=== PATIENT | male | born 1960 | race African-American/Black ===

== ENCOUNTER 2019-02-04 11:38 | Inpatient (IN) | payer OTHER ==
[~2019-02-04] VITALS: Ht 182.9 cm; Wt 72.1 kg
[~2019-02-04 11:38] MED LIST: AMLO5TAB10 PO; ASPI-482 PO; BUTA1TAB23 PO; CA C1TAB67 PO; CETI10TA16 PO; CLON1PAT3 TD; CYCL10TA2 PO; DALF10TA PO; DIVA-53 PO; DOCU100C28 PO; FING0.5C3 PO; FLEC100T PO; FLUT9.9S NS; FURO40TA4 PO; GABA300C18 PO; IBUP-1007 PO; LEVE500T56 PO; LISI-130 PO; METO50TA6 PO; MORP15TA80 PO; OMEP20TA8 PO; OXYC5CAP PO; POLY17PO29 PO; RISP0.2519 PO; TAMS0.4C2 PO
[2019-02-04] MEDS ORDERED: IV NORMAL SALINE 1000ML BAG 1,000 ML IV SCH (12:07)
--- NOTE | 2019-02-04 12:12 | PHYS DOC ---
Past Medical History Past Medical History: Other Additional Past Medical Histor: ms Past Surgical History: Other Additional Past Surgical Histo: rt hip replacement x 2 Alcohol Use: None Drug Use: None Adult General Chief Complaint Chief Complaint: ALTERED MENTAL STATUS HPI HPI Patient is a 58-year-old male who presents to the emergency department for evaluation of fever and altered mental status of his fci. He was recently discharged from this facility after being admitted with metabolic encephalopathy. His baseline mental status is not known to me. He does not voice any particular complaints but is extremely limited historian. EMS did not have much information about the patient's baseline from this. There are no alleviating, or exacerbating factors to his sx. Review of Systems Review of Systems Unable to obtain review of systems secondary to patient's underlying mental status. Current Medications Current Medications Current Medications Medications (Trade) Dose Ordered Sig/Joel Start Time Stop Time Status Last Admin Dose Admin Acetaminophen (Tylenol) 1,000 mg 1X ONCE 02/04/19 12:15 02/04/19 12:16 DC 02/04/19 13:03 1,000 MG Ceftriaxone Sodium (Rocephin) 1 gm 1X ONCE 02/04/19 12:15 02/04/19 12:16 DC 02/04/19 12:58 1 GM Piperacillin Sod/ Tazobactam Sod (Zosyn Per Pharmacy) 1 each PRN DAILY PRN 02/04/19 13:15 Piperacillin Sod/ Tazobactam Sod 3.375 gm/Sodium Chloride 50 ml @ 100 mls/hr Q6HRS 02/04/19 13:30 Sodium Chloride 1,000 ml @ 1,000 mls/hr Q1H 02/04/19 12:07 02/04/19 13:06 DC 02/04/19 12:56 1,000 MLS/HR Vancomycin HCl (Vanco Per Pharmacy) 1 each PRN DAILY PRN 02/04/19 13:15 Vancomycin HCl 2 gm/Sodium Chloride 500 ml @ 250 mls/hr 1X ONCE 02/04/19 14:00 02/04/19 15:59 Allergies Allergies Allergies Coded Allergies Type Severity Reaction Last Updated Verified No Known Drug Allergies 09/03/15 No Physical Exam Physical Exam PHYSICAL EXAM: CONSTITUTIONAL: Well developed, well nourished HEAD: normocephalic, atraumatic EENT: PERRL, EOMI. Conjunctivae normal color, sclerae non-icteric; moist mucous membranes. NECK: Supple, non-tender; no meningismus. LUNGS: Lungs CTA, breathing even and unlabored. Normal air movement. HEART: Regular rate and rhythm, no murmur CHEST: No deformity; non-tender ABDOMEN: The abdomen is soft, and non-tender, no masses or bruits. EXTREM: Normal ROM; no deformity, no calf tenderness. Normal pulses palpable in all extremities. There is trace bilateral pedal edema. SKIN: No rashes. NEUROLOGICAL: Patient is lethargic. There is no definite focal deficit. Current Patient Data Vital Signs Vital Signs Date Time Temp Pulse Resp B/P (MAP) Pulse Ox O2 Delivery O2 Flow Rate FiO2 02/04/19 12:09 101.7 84 18 102/73 (83) 89 Room Air 101.7 Lab Values Laboratory Tests Test 02/04/19 12:05 02/04/19 12:30 White Blood Count 7.5 x10^3/uL (4.0-11.0) Red Blood Count 3.63 x10^6/uL (4.30-5.70) L Hemoglobin 11.4 g/dL (13.0-17.5) L Hematocrit 34.7 % (39.0-53.0) L Mean Corpuscular Volume 95 fL (79-100) Mean Corpuscular Hemoglobin 31 pg (25-35) Mean Corpuscular Hemoglobin Concent 33 g/dL (31-37) Red Cell Distribution Width 15.5 % (11.5-14.5) H Platelet Count 264 x10^3/uL (140-400) Neutrophils (%) (Auto) 84 % (31-73) H Lymphocytes (%) (Auto) 6 % (24-48) L Monocytes (%) (Auto) 10 % (0-9) H Eosinophils (%) (Auto) 0 % (0-3) Basophils (%) (Auto) 0 % (0-3) Neutrophils # (Auto) 6.3 x10^3uL (1.8-7.7) Lymphocytes # (Auto) 0.4 x10^3/uL (1.0-4.8) L Monocytes # (Auto) 0.7 x10^3/uL (0.0-1.1) Eosinophils # (Auto) 0.0 x10^3/uL (0.0-0.7) Basophils # (Auto) 0.0 x10^3/uL (0.0-0.2) Sodium Level 143 mmol/L (136-145) Potassium Level 4.0 mmol/L (3.5-5.1) Chloride Level 106 mmol/L (98-107) Carbon Dioxide Level 31 mmol/L (21-32) Anion Gap 6 (6-14) Blood Urea Nitrogen 19 mg/dL (8-26) Creatinine 1.4 mg/dL (0.7-1.3) H Estimated GFR (Cockcroft-Gault) 62.8 BUN/Creatinine Ratio 14 (6-20) Glucose Level 122 mg/dL (70-99) H Lactic Acid Level 1.3 mmol/L (0.4-2.0) Calcium Level 9.0 mg/dL (8.5-10.1) Total Bilirubin 0.3 mg/dL (0.2-1.0) Aspartate Amino Transferase (AST) 26 U/L (15-37) Alanine Aminotransferase (ALT) 26 U/L (16-63) Alkaline Phosphatase 118 U/L (46-116) H Ammonia 23 mcmol/L (11-34) Troponin I Quantitative < 0.017 ng/mL (0.000-0.055) BU-Asx-D-Type Natriuretic Peptide 517 pg/mL (0-124) H Total Protein 7.1 g/dL (6.4-8.2) Albumin 2.5 g/dL (3.4-5.0) L Albumin/Globulin Ratio 0.5 (1.0-1.7) L Valproic Acid Level 32 mcg/mL (50-100) L Valproic Acid Last Dose Date Unknown Valproic Acid Last Dose Time Unknown Phenobarbital Level 1.0 mcg/mL (15.0-40.0) L Phenobarbital Last Dose Date Unknown Phenobarbital Last Dose Time Unknown Urine Collection Type Unknown Urine Color Yellow Urine Clarity Clear Urine pH 8.0 Urine Specific [place] 1.015 Urine Protein 100 mg/dL (NEG-TRACE) Urine Glucose (UA) Negative mg/dL (NEG) Urine Ketones (Stick) Negative mg/dL (NEG) Urine Blood Negative (NEG) Urine Nitrite Negative (NEG) Urine Bilirubin Negative (NEG) Urine Urobilinogen Dipstick 1.0 mg/dL (0.2 mg/dL) Urine Leukocyte Esterase Moderate (NEG) Urine RBC 0 /HPF (0-2) Urine WBC 11-20 /HPF (0-4) Urine Bacteria Moderate /HPF (0-FEW) Urine Mucus Slight /LPF Laboratory Tests 02/04/19 12:05 Laboratory Tests 02/04/19 12:05 EKG EKG [Normal sinus rhythm at a rate of 76 bpm, left axis deviation, normal intervals. Anterior T-wave inversion, without acute ischemic ST-T changes.] Radiology/Procedures Radiology/Procedures [PROCEDURE: CT HEAD WO CONTRAST PQRS Compliance Statement: One or more of the following individualized dose reduction techniques were utilized for this examination: 1. Automated exposure control 2. Adjustment of the mA and/or kV according to patient size 3. Use of iterative reconstruction technique CT HEAD WITHOUT CONTRAST History: Fever, altered mental status. Comparison: CT head without contrast, January 22, 2019. Technique: Axial images are obtained of the head from the skull base through the vertex without IV contrast. Findings: No mass-effect, midline shift, extra-axial fluid collection, hemorrhage, or obvious acute infarction is identified. Basilar cisterns are patent. The ventricles and sulci are prominent, consistent with age-related cerebral atrophy. There is moderate supratentorial white matter hypoattenuation. This is a nonspecific finding but is commonly due to chronic small vessel ischemic disease. Bone windows demonstrate no acute calvarial abnormality. The visualized paranasal sinuses are clear. Mastoid air cells are well aerated. IMPRESSION: 1. No acute intracranial abnormality. 2. Age-related cerebral atrophy and moderate supratentorial white matter changes probably due to chronic small vessel ischemic disease.] PROCEDURE: PORTABLE CHEST 1V PORTABLE supine CHEST 1V Clinical Indication: Fever Comparison: AP chest January 15, 2019. Findings: Tortuous thoracic aorta. Cardiac size is normal. Mild left basilar airspace disease. The right lung is clear. There is no pneumothorax. No layering pleural effusion is appreciated. No acute bone abnormality. IMPRESSION: Mild left basilar airspace disease. Course & Med Decision Making Course & Med Decision Making Pertinent Labs and Imaging studies reviewed. (See chart for details) []2:15 PM:The patient's condition remains stable. I spoke with the hospitalist, who accepted the patient to the hospital for further evaluation and treatment. Differential considerations include UTI and pneumonia. The patient's mother is at his bedside and states that he does not appear to be any more confused than he normally is. He is awake at this time, but his speech is not logical. She states that this is not an acute change from his baseline. Dragon Disclaimer Dragon Disclaimer This electronic medical record was generated, in whole or in part, using a voice recognition dictation system. Departure Departure Impression: Primary Impression: Fever Additional Impressions: UTI (urinary tract infection) Pneumonia Encephalopathy Disposition: 09 ADMITTED INPATIENT Admitting Physician: THOMPSON Condition: STABLE Referrals: UNKNOWN PCP NAME (PCP) Problem Qualifiers LANE MEZA MD Feb 04, 2019 12:12
[2019-02-04] MEDS: ACETAMINOPHEN 500 MG TABLET PO ONE ×2 (12:15→13:03)
[2019-02-04] MEDS ORDERED: cefTRIAXone IV Push 1 GM VIAL. IVP ONE (12:15)
[2019-02-04 12:23] LABS: BASO % 0 % (0-3); EOS % 0 % (0-3); HEMATOCRIT 34.7 % (39.0-53.0); HEMOGLOBIN 11.4 g/dL (13.0-17.5); LYMPH # 0.4 x10^3/uL (1.0-4.8); LYMPH % 6 % (24-48); MEAN CORPUSCULAR HEMOGLOBIN 31 pg (25-35); MEAN CORPUSCULAR HGB CONC 33 g/dL (31-37); MEAN CORPUSCULAR VOLUME 95 fL (79-100); MONO # 0.7 x10^3/uL (0.0-1.1); MONO % 10 % (0-9); NEUT # 6.3 x10^3uL (1.8-7.7); NEUT % 84 % (31-73); PLATELET COUNT 264 x10^3/uL (140-400); RED BLOOD COUNT 3.63 x10^6/uL (4.30-5.70); RED CELL DISTRIBUTION WIDTH 15.5 % (11.5-14.5); WHITE BLOOD COUNT 7.5 x10^3/uL (4.0-11.0)
[2019-02-04 12:34] LABS: ANION GAP 6 (6-14); BLOOD UREA NITROGEN 19 mg/dL (8-26); BUN/CREATININE RATIO 14 (6-20); CARBON DIOXIDE 31 mmol/L (21-32); CHLORIDE 106 mmol/L (98-107); CREATININE 1.4 mg/dL (0.7-1.3); GFR 62.8; GLUCOSE 122 mg/dL (70-99); SODIUM 143 mmol/L (136-145)
--- NOTE | 2019-02-04 12:39 | RAD ---
PORTABLE supine CHEST 1V Clinical Indication: Fever Comparison: AP chest January 15, 2019. Findings: Tortuous thoracic aorta. Cardiac size is normal. Mild left basilar airspace disease. The right lung is clear. There is no pneumothorax. No layering pleural effusion is appreciated. No acute bone abnormality. IMPRESSION: Mild left basilar airspace disease. Electronically signed by: Manuel James MD (02/04/2019 12:36 PM) [id number]
[2019-02-04 12:41] LABS: ALBUMIN 2.5 g/dL (3.4-5.0); ALBUMIN/GLOBULIN RATIO 0.5 (1.0-1.7); ALK PHOS 118 U/L (46-116); ALT (SGPT) 26 U/L (16-63); AST (SGOT) 26 U/L (15-37); TOTAL BILIRUBIN 0.3 mg/dL (0.2-1.0); TOTAL PROTEIN 7.1 g/dL (6.4-8.2)
[2019-02-04 12:44] LABS: VAL ACID 32 mcg/mL (50-100)
[2019-02-04 12:46] LABS: BILIRUBIN,URINE NEGATIVE (NEG); CLARITY,URINE CLEAR; COLOR,URINE YELLOW; NITRITE,URINE NEGATIVE (NEG); PROTEIN,URINE 100 mg/dL (NEG-TRACE)
--- NOTE | 2019-02-04 12:59 | RAD ---
PQRS Compliance Statement: One or more of the following individualized dose reduction techniques were utilized for this examination: 1. Automated exposure control 2. Adjustment of the mA and/or kV according to patient size 3. Use of iterative reconstruction technique CT HEAD WITHOUT CONTRAST History: Fever, altered mental status. Comparison: CT head without contrast, January 22, 2019. Technique: Axial images are obtained of the head from the skull base through the vertex without IV contrast. Findings: No mass-effect, midline shift, extra-axial fluid collection, hemorrhage, or obvious acute infarction is identified. Basilar cisterns are patent. The ventricles and sulci are prominent, consistent with age-related cerebral atrophy. There is moderate supratentorial white matter hypoattenuation. This is a nonspecific finding but is commonly due to chronic small vessel ischemic disease. Bone windows demonstrate no acute calvarial abnormality. The visualized paranasal sinuses are clear. Mastoid air cells are well aerated. IMPRESSION: 1. No acute intracranial abnormality. 2. Age-related cerebral atrophy and moderate supratentorial white matter changes probably due to chronic small vessel ischemic disease. Electronically signed by: Manuel James MD (02/04/2019 12:56 PM) [id number]
[2019-02-04] MEDS ORDERED: PIP/TAZO PER PHARMACY MC PRN (13:15)
[2019-02-04] MEDS ORDERED: VANCOMYCIN PER PHARMACY MC PRN (13:15)
--- NOTE | 2019-02-04 13:22 | EKG ---
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
[2019-02-04 13:37] LABS: BACTERIA,URINE MODERATE /HPF (0-FEW); RBC,URINE 0 /HPF (0-2)
[2019-02-04] MEDS ORDERED: VANCOMYCIN 2 GM in IV NORMAL SALINE 500ML BAG 500 ML IV ONE (14:00)
[2019-02-04] MEDS: PIPERACILLIN/TAZOBACTAM 3.375 GM in IV NORMAL SALINE 50ML 50 ML IV SCH ×3 (14:24→23:58)
--- NOTE | 2019-02-04 15:50 | NUR ---
Pharmacy Vancomycin Dosing Note S:Consulted to monitor and dose vancomycin started 02/04/19. O:MAC VAZ is a 58 year old M with Pneumonia UTI . Height: 6 feet, 0 inches Weight: 81.018027 kg [place] Body Weight: 77.60 Adjusted Body Weight: 79.20 Dosing Weight: Actual Other Antibiotics: ZOSYN 3.375 GM Q6H LABS: Last BUN: 19 Last Creatinine: 1.4 Creatinine Clearance: 63 mL/min Last WBC: 7.5 Last Procalcitonin: Tmax (past 24 hours): 101.7 Microbiology: I/O: Drug Levels: Last level: on at Last dose given 02/04/19 at 1530 Vancomycin Dosing: Loading Dose: 2000 mg x1 Dosing Weight: Actual Target Trough: 15-20 A: Based on: WT AND CRCL P: 1. Begin Vancomycin 1250 mg IV q12h 2. Follow up Trough level on 02/06/19 at 0330 3. Pharmacy will continue to monitor, follow and adjust therapy as needed. AWAIS HOWARD RPH, 02/04/19 1550 Signed: 02/04/19 at 1550 by AWAIS HOWARD RPH PHA
[2019-02-04 17:00] VITALS: BP 149/94
[2019-02-04 19:56] VITALS: BP 121/67
[2019-02-04] MEDS: LACTOBACILLUS RHAMNOSUS GG 1 CAPSULE. PO SCH (21:00)
--- NOTE | 2019-02-04 21:12 | HP ---
ADMIT DATE: 02/04/2019 CHIEF COMPLAINT: Mental status change and fevers. HISTORY OF PRESENT ILLNESS: The patient is a pleasant 58-year-old male, who resides in a detention. He has a stroke with an expressive aphasia. He presented today with metabolic encephalopathy, mental status change and was noted to have a UTI. I discussed the case with the ER physician. We are going to admit the patient, give him IV antibiotics and fluids. PAST MEDICAL HISTORY: Stroke, expressive aphasia, right hip replacement. ALLERGIES: None. FAMILY HISTORY: Hypertension. SOCIAL HISTORY: Does not drink, smoke, or take drugs. He lives in a detention. MEDICATIONS: Reviewed, please refer to the MRAD. REVIEW OF SYSTEMS: Unable to obtain. The patient has an expressive aphasia. PHYSICAL EXAMINATION: VITAL SIGNS: Temperature 100.0, pulse 70, respirations 18, blood pressure 149/94. GENERAL: He is alert, but cannot speak much. He seems confused, but then again, he has an expressive aphasia, so it is a little difficult to ascertain how confused he is. HEART: Normal S1, S2. LUNGS: Clear to auscultation. ABDOMEN: Soft. Decreased bowel sounds, a little tender in the lower quadrants. EXTREMITIES: Trace edema. SKIN: No rashes. ENDOCRINE: No thyromegaly. LYMPHATICS: No cervical nodes. HEMATOPOIETIC: No bruising noted. PSYCHIATRIC: He seems depressed. LABORATORY DATA: Hemoglobin is 11.4. Electrolytes are normal other than a creatinine of 1.4 and glucose of 122. The urine does show leukocyte esterase and 11-20 white cells. ASSESSMENT AND PLAN: UTI with sepsis and metabolic encephalopathy. The patient has been admitted. We will start IV antibiotics, IV fluids. Consult physical therapy and occupational therapy, home meds, frequent labs. DVT prophylaxis. Full code. USHA WILSON DO DR: JAIMIE/mayra JOB#: [id number] / [id number]
[2019-02-04 23:13] VITALS: BP 102/72
[2019-02-05 03:00] VITALS: BP 117/81
[2019-02-05] MEDS ORDERED: VANCOMYCIN 1.25 GM in IV NORMAL SALINE 250ML 250 ML IV SCH (04:00)
[2019-02-05] MEDS: PIPERACILLIN/TAZOBACTAM 3.375 GM in IV NORMAL SALINE 50ML 50 ML IV SCH ×3 (06:11→17:12)
[2019-02-05 07:59] VITALS: BP 113/80
--- NOTE | 2019-02-05 08:41 | PDOC ---
Infectious Disease Note Vital Sign Vital Signs Vital Signs Date Time Temp Pulse Resp B/P (MAP) Pulse Ox O2 Delivery O2 Flow Rate FiO2 02/05/19 07:59 98.8 67 18 113/80 (91) 96 Room Air 98.8 Labs Lab Laboratory Tests Test 02/04/19 12:05 02/04/19 12:30 White Blood Count 7.5 x10^3/uL (4.0-11.0) Red Blood Count 3.63 x10^6/uL (4.30-5.70) Hemoglobin 11.4 g/dL (13.0-17.5) Hematocrit 34.7 % (39.0-53.0) Mean Corpuscular Volume 95 fL (79-100) Mean Corpuscular Hemoglobin 31 pg (25-35) Mean Corpuscular Hemoglobin Concent 33 g/dL (31-37) Red Cell Distribution Width 15.5 % (11.5-14.5) Platelet Count 264 x10^3/uL (140-400) Neutrophils (%) (Auto) 84 % (31-73) Lymphocytes (%) (Auto) 6 % (24-48) Monocytes (%) (Auto) 10 % (0-9) Eosinophils (%) (Auto) 0 % (0-3) Basophils (%) (Auto) 0 % (0-3) Neutrophils # (Auto) 6.3 x10^3uL (1.8-7.7) Lymphocytes # (Auto) 0.4 x10^3/uL (1.0-4.8) Monocytes # (Auto) 0.7 x10^3/uL (0.0-1.1) Eosinophils # (Auto) 0.0 x10^3/uL (0.0-0.7) Basophils # (Auto) 0.0 x10^3/uL (0.0-0.2) Sodium Level 143 mmol/L (136-145) Potassium Level 4.0 mmol/L (3.5-5.1) Chloride Level 106 mmol/L (98-107) Carbon Dioxide Level 31 mmol/L (21-32) Anion Gap 6 (6-14) Blood Urea Nitrogen 19 mg/dL (8-26) Creatinine 1.4 mg/dL (0.7-1.3) Estimated GFR (Cockcroft-Gault) 62.8 BUN/Creatinine Ratio 14 (6-20) Glucose Level 122 mg/dL (70-99) Lactic Acid Level 1.3 mmol/L (0.4-2.0) Calcium Level 9.0 mg/dL (8.5-10.1) Total Bilirubin 0.3 mg/dL (0.2-1.0) Aspartate Amino Transf (AST/SGOT) 26 U/L (15-37) Alanine Aminotransferase (ALT/SGPT) 26 U/L (16-63) Alkaline Phosphatase 118 U/L (46-116) Ammonia 23 mcmol/L (11-34) Troponin I Quantitative < 0.017 ng/mL (0.000-0.055) NZ-Ruv-X-Type Natriuretic Peptide 517 pg/mL (0-124) Total Protein 7.1 g/dL (6.4-8.2) Albumin 2.5 g/dL (3.4-5.0) Albumin/Globulin Ratio 0.5 (1.0-1.7) Valproic Acid (Depakene) Level 32 mcg/mL (50-100) Valproic Acid Last Dose Date Unknown Valproic Acid Last Dose Time Unknown Phenobarbital Level 1.0 mcg/mL (15.0-40.0) Phenobarbital Last Dose Date Unknown Phenobarbital Last Dose Time Unknown Urine Collection Type Unknown Urine Color Yellow Urine Clarity Clear Urine pH 8.0 Urine Specific [place] 1.015 Urine Protein 100 mg/dL (NEG-TRACE) Urine Glucose (UA) Negative mg/dL (NEG) Urine Ketones (Stick) Negative mg/dL (NEG) Urine Blood Negative (NEG) Urine Nitrite Negative (NEG) Urine Bilirubin Negative (NEG) Urine Urobilinogen Dipstick 1.0 mg/dL (0.2 mg/dL) Urine Leukocyte Esterase Moderate (NEG) Urine RBC 0 /HPF (0-2) Urine WBC 11-20 /HPF (0-4) Urine Bacteria Moderate /HPF (0-FEW) Urine Mucus Slight /LPF Micro Microbiology 02/04/19 Blood Culture - Final, Complete Objective Assessment G neg ruchi bacteremia UTI with sepsis Encephalopathy MS HTN Plan Plan of Care d/c vanc zosyn check cultures supportive care DANK MADDOX MD Feb 05, 2019 08:41
[2019-02-05] MEDS ORDERED: CETIRIZINE HCL 10 MG TABLET. PO PRN (10:00)
[2019-02-05] MEDS ORDERED: CYCLOBENZAPRINE 10 MG TABLET. PO PRN (10:00)
[2019-02-05] MEDS ORDERED: ASA/APAP/CAFFEINE 250/250/65MG TABLET. PO PRN (10:00)
[2019-02-05] MEDS ORDERED: IBUPROFEN 200 MG TABLET. PO PRN (10:30)
--- NOTE | 2019-02-05 10:35 | PDOC ---
[facility] [facility] PROGRESS NOTE Chief Complaint Chief Complaint UTI with sepsis and metabolic encephalopathy. History of Present Illness History of Present Illness Patient seen and examined He is a little more talkative today but still has expressive aphasia so not sure what he is saying? 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 He is currently on IV Vanco and IV Zosyn Vitals/I&O Vitals/I&O: Vital Signs Date Time Temp Pulse Resp B/P (MAP) Pulse Ox O2 Delivery O2 Flow Rate FiO2 02/05/19 08:00 Room Air 02/05/19 07:59 98.8 67 18 113/80 (91) 96 98.8 I & O 02/04/19 02/04/19 02/05/19 15:00 23:00 07:00 Intake Total 1050 ml 100 ml Balance 1050 ml 100 ml Physical Exam General: Alert, mild distress Heart: Regular rate, Normal S1 Lungs: Clear Abdomen: Normal bowel sounds Extremities: No clubbing, No cyanosis Skin: No rashes Labs Labs: Laboratory Tests Test 02/04/19 12:05 02/04/19 12:30 White Blood Count 7.5 x10^3/uL (4.0-11.0) Red Blood Count 3.63 x10^6/uL (4.30-5.70) Hemoglobin 11.4 g/dL (13.0-17.5) Hematocrit 34.7 % (39.0-53.0) Mean Corpuscular Volume 95 fL (79-100) Mean Corpuscular Hemoglobin 31 pg (25-35) Mean Corpuscular Hemoglobin Concent 33 g/dL (31-37) Red Cell Distribution Width 15.5 % (11.5-14.5) Platelet Count 264 x10^3/uL (140-400) Neutrophils (%) (Auto) 84 % (31-73) Lymphocytes (%) (Auto) 6 % (24-48) Monocytes (%) (Auto) 10 % (0-9) Eosinophils (%) (Auto) 0 % (0-3) Basophils (%) (Auto) 0 % (0-3) Neutrophils # (Auto) 6.3 x10^3uL (1.8-7.7) Lymphocytes # (Auto) 0.4 x10^3/uL (1.0-4.8) Monocytes # (Auto) 0.7 x10^3/uL (0.0-1.1) Eosinophils # (Auto) 0.0 x10^3/uL (0.0-0.7) Basophils # (Auto) 0.0 x10^3/uL (0.0-0.2) Sodium Level 143 mmol/L (136-145) Potassium Level 4.0 mmol/L (3.5-5.1) Chloride Level 106 mmol/L (98-107) Carbon Dioxide Level 31 mmol/L (21-32) Anion Gap 6 (6-14) Blood Urea Nitrogen 19 mg/dL (8-26) Creatinine 1.4 mg/dL (0.7-1.3) Estimated GFR (Cockcroft-Gault) 62.8 BUN/Creatinine Ratio 14 (6-20) Glucose Level 122 mg/dL (70-99) Lactic Acid Level 1.3 mmol/L (0.4-2.0) Calcium Level 9.0 mg/dL (8.5-10.1) Total Bilirubin 0.3 mg/dL (0.2-1.0) Aspartate Amino Transf (AST/SGOT) 26 U/L (15-37) Alanine Aminotransferase (ALT/SGPT) 26 U/L (16-63) Alkaline Phosphatase 118 U/L (46-116) Ammonia 23 mcmol/L (11-34) Troponin I Quantitative < 0.017 ng/mL (0.000-0.055) VA-Mgs-A-Type Natriuretic Peptide 517 pg/mL (0-124) Total Protein 7.1 g/dL (6.4-8.2) Albumin 2.5 g/dL (3.4-5.0) Albumin/Globulin Ratio 0.5 (1.0-1.7) Valproic Acid (Depakene) Level 32 mcg/mL (50-100) Valproic Acid Last Dose Date Unknown Valproic Acid Last Dose Time Unknown Phenobarbital Level 1.0 mcg/mL (15.0-40.0) Phenobarbital Last Dose Date Unknown Phenobarbital Last Dose Time Unknown Urine Collection Type Unknown Urine Color Yellow Urine Clarity Clear Urine pH 8.0 Urine Specific [place] 1.015 Urine Protein 100 mg/dL (NEG-TRACE) Urine Glucose (UA) Negative mg/dL (NEG) Urine Ketones (Stick) Negative mg/dL (NEG) Urine Blood Negative (NEG) Urine Nitrite Negative (NEG) Urine Bilirubin Negative (NEG) Urine Urobilinogen Dipstick 1.0 mg/dL (0.2 mg/dL) Urine Leukocyte Esterase Moderate (NEG) Urine RBC 0 /HPF (0-2) Urine WBC 11-20 /HPF (0-4) Urine Bacteria Moderate /HPF (0-FEW) Urine Mucus Slight /LPF Assessment and Plan Assessmemt and Plan Problems Medical Problems: (1) Encephalopathy Status: Acute (2) Fever Status: Acute (3) Pneumonia Status: Acute (4) UTI (urinary tract infection) Status: Acute UTI with sepsis and metabolic encephalopathy. Plan IV vancomycin plus IV. Zosyn IV fluids PT OT Home meds DVT prophylaxis full code Appreciate infectious disease input Comment Review of Relevant I have reviewed the following items davion (where applicable) has been applied. Medications: Current Medications Medications (Trade) Dose Ordered Sig/Joel Route PRN Reason Start Time Stop Time Status Last Admin Dose Admin Sodium Chloride 1,000 ml @ 1,000 mls/hr Q1H IV 02/04/19 12:07 02/04/19 13:06 DC 02/04/19 12:56 Ceftriaxone Sodium (Rocephin) 1 gm 1X ONCE IVP 02/04/19 12:15 02/04/19 12:16 DC 02/04/19 12:58 Vancomycin HCl (Vanco Per Pharmacy) 1 each PRN DAILY PRN MC SEE COMMENTS 02/04/19 13:15 02/05/19 08:47 DC 02/04/19 15:48 Piperacillin Sod/ Tazobactam Sod 3.375 gm/Sodium Chloride 50 ml @ 100 mls/hr Q6HRS IV 02/04/19 13:30 02/05/19 06:11 Vancomycin HCl 2 gm/Sodium Chloride 500 ml @ 250 mls/hr 1X ONCE IV 02/04/19 14:00 02/05/19 08:39 DC 02/04/19 15:34 Lactobacillus Rhamnosus (Culturelle) 1 cap BID PO 02/04/19 21:00 02/04/19 21:00 Vancomycin HCl 1.25 gm/Sodium Chloride 250 ml @ 167 mls/hr Q12H IV 02/05/19 04:00 02/05/19 08:39 DC 02/05/19 04:25 USHA WILSON III DO Feb 05, 2019 10:35
[2019-02-05 11:00] VITALS: BP 118/79
[2019-02-05] MEDS: amLODIPine BESYLATE 5 MG TABLET PO SCH (11:00)
[2019-02-05] MEDS ORDERED: POLYETHYLENE GLYCOL PO SCH (11:00)
[2019-02-05] MEDS: METOPROLOL TART IMMED RELEASE 50 MG TABLET. PO SCH ×2 (11:00→21:29)
[2019-02-05] MEDS: LISINOPRIL 20 MG TABLET PO SCH (11:00)
[2019-02-05] MEDS: FUROSEMIDE 40 MG TABLET. PO SCH (11:00)
[2019-02-05] MEDS ORDERED: FLUTICASONE 50MCG/NASAL SPRAY 16GM BOTTLE. NS SCH (11:00)
[2019-02-05] MEDS ORDERED: POLYETHYLENE GLYCOL 3350 17 GM PACKET. PO SCH (12:00)
[2019-02-05] MEDS: FLUTICASONE 50MCG/NASAL SPRAY 16GM BOTTLE. NS SCH (12:15)
[2019-02-05] MEDS: ASPIRIN ENTERIC COATED 81 MG TABLET.DR. PO SCH (13:37)
[2019-02-05] MEDS: FLECAINIDE ACETATE 50 MG TABLET. PO SCH ×2 (13:38→21:27)
[2019-02-05] MEDS: oxyCODONE IR 5 MG TABLET PO PRN ×2 (13:38→21:28)
[2019-02-05] MEDS: TAMSULOSIN 0.4 MG CAP.ER.24H. PO SCH (13:39)
[2019-02-05] MEDS: GABAPENTIN 300 MG CAPSULE. PO SCH ×3 (13:39→21:27)
[2019-02-05] MEDS: PANTOPRAZOLE 40 MG TABLET.DR. PO SCH (13:39)
[2019-02-05] MEDS: DIVALPROEX DELAYED RELEASE 500 MG TABLET.DR. PO SCH ×2 (13:39→21:22)
[2019-02-05] MEDS: levETIRAcetam 500 MG TABLET PO SCH ×2 (13:39→21:22)
[2019-02-05] MEDS: CALCIUM CARB/VIT D3 500/200 TABLET. PO SCH ×2 (13:39→17:13)
[2019-02-05] MEDS: risperiDONE 0.25 MG TABLET. PO SCH (13:40)
[2019-02-05] MEDS: LACTOBACILLUS RHAMNOSUS GG 1 CAPSULE. PO SCH ×2 (13:40→21:27)
--- NOTE | 2019-02-05 14:43 | NUR ---
Bladder scanned after incontinence. Post void residual 44cc.
[2019-02-05 15:00] VITALS: BP 114/80
--- NOTE | 2019-02-05 17:42 | CONS ---
DATE OF CONSULTATION: 02/05/2019 REQUESTING PHYSICIAN: Dr. Mathew. REASON FOR CONSULTATION: Gram-negative sepsis. HISTORY OF PRESENT ILLNESS: This is a 58-year-old gentleman, who is a residential resident from expressive aphasia, stroke, and multiple sclerosis; who has been sent in for mental status change and fevers. The patient was found to have abnormal urinalysis. The patient's blood culture is positive with gram-negative ruchi, had a fever up to 102.7 and the patient has been put on vancomycin and Zosyn. The patient is able to communicate, but it is a hit and miss. He is okay, thank you and goodbye things like that he is able to say, but any further slightly complicated question even as simple as I asked him to squeeze my hands and he was not able to do it and kept saying thank you. The patient has not been noted to have any nausea, vomiting, or diarrhea. PAST MEDICAL HISTORY: Positive for multiple sclerosis, expressive aphasia, hypertension with hypertensive encephalopathy in the past, hip replacement, and chronic mental status change. SOCIAL HISTORY: Negative for smoking, alcohol, or illicit drug use. The patient is a residential resident. ALLERGIES: No known drug allergies. CURRENT MEDICATIONS: Reviewed. The patient is on vancomycin and Zosyn. REVIEW OF SYSTEMS: As per HPI. All other systems reviewed and are negative. PHYSICAL EXAMINATION: GENERAL: Awake gentleman, not in distress. VITAL SIGNS: Stable with a T-max 102.7. HEENT: NAD. NECK: Supple. No JVP. No lymphadenopathy. LUNGS: Clear. HEART: S1, S2 regular. ABDOMEN: Benign. EXTREMITIES: The patient is a total care and not able to stand or walk as my understanding and extremity movements are also limited; although, he can move it. NEUROLOGICAL: The patient also does not follow command, as he kept saying thank you and good morning, but not able to further communicate in a meaningful fashion. LABORATORY DATA: White count is 7.5, hemoglobin 11.4, platelets are normal. BUN and creatinine are 19 and 1.4. Lactic acid 1.3. Albumin is 2.5. Urinalysis showed 11-20 wbc's. Blood culture is positive with gram-negative ruchi. Urine culture is pending. Chest x-ray with mild left basilar airspace disease. CT of the head was not showing any acute changes. IMPRESSION: 1. Gram-negative ruchi sepsis. 2. Urinary tract infection with sepsis. 3. Fever. 4. Multiple sclerosis. 5. Expressive aphasia. 6. Encephalopathy. RECOMMENDATIONS: Recommend discontinue vancomycin, continue Zosyn, supportive care, hydration, postvoid residual to check for retention and close monitoring. We will continue to follow. Thank you very much, Dr. Mathew, for giving me opportunity to participate in this patient's care. DANK MADDOX MD DR: KIMBERLY/mayra JOB#: [id number] / [id number]
[2019-02-05 19:57] VITALS: BP 134/90
[2019-02-05 23:30] VITALS: BP 139/88
[2019-02-06] MEDS: PIPERACILLIN/TAZOBACTAM 3.375 GM in IV NORMAL SALINE 50ML 50 ML IV SCH ×5 (00:07→23:57)
[2019-02-06 03:43] VITALS: BP 134/87
--- NOTE | 2019-02-06 06:33 | PDOC ---
Infectious Disease Note Subjective Subjective pt is looking ok comfortable ROS ROS no n/v/d/sob Vital Sign Vital Signs Vital Signs Date Time Temp Pulse Resp B/P (MAP) Pulse Ox O2 Delivery O2 Flow Rate FiO2 02/06/19 03:43 63 18 134/87 (103) 95 Room Air 02/05/19 23:30 97.9 97.9 Physical Exam PHYSICAL EXAM GENERAL: Awake gentleman, not in distress. VITAL SIGNS: Stable HEENT: NAD. NECK: Supple. No JVP. No lymphadenopathy. LUNGS: Clear. HEART: S1, S2 regular. ABDOMEN: Benign. EXTREMITIES: The patient is a total care and not able to stand or walk as my understanding and extremity movements are also limited; although, he can move it. NEUROLOGICAL: The patient also does not follow command, as he kept saying thank you and good morning, but not able to further communicate in a meaningful fashion. Labs Micro Urine e coli BC g neg ruchi Objective Assessment G neg ruchi bacteremia UTI with sepsis Encephalopathy MS HTN Plan Plan of Care zosyn check cultures supportive care DANK MADDOX MD Feb 06, 2019 06:33
[2019-02-06 07:00] VITALS: BP 142/92
[2019-02-06] MEDS: FLECAINIDE ACETATE 50 MG TABLET. PO SCH ×2 (09:00→20:56)
[2019-02-06] MEDS: POLYETHYLENE GLYCOL 3350 17 GM PACKET. PO SCH (09:00)
[2019-02-06] MEDS ORDERED: FINGOLIMOD HCL 0.5 MG PO SCH (09:00)
[2019-02-06] MEDS: FLUTICASONE 50MCG/NASAL SPRAY 16GM BOTTLE. NS SCH (09:00)
[2019-02-06] MEDS: LACTOBACILLUS RHAMNOSUS GG 1 CAPSULE. PO SCH ×2 (10:09→20:47)
[2019-02-06] MEDS: PANTOPRAZOLE 40 MG TABLET.DR. PO SCH (10:09)
[2019-02-06] MEDS: levETIRAcetam 500 MG TABLET PO SCH ×2 (10:10→20:47)
[2019-02-06] MEDS: TAMSULOSIN 0.4 MG CAP.ER.24H. PO SCH (10:10)
[2019-02-06] MEDS: CALCIUM CARB/VIT D3 500/200 TABLET. PO SCH ×2 (10:10→17:14)
[2019-02-06] MEDS: DIVALPROEX DELAYED RELEASE 500 MG TABLET.DR. PO SCH ×2 (10:10→20:50)
[2019-02-06] MEDS: risperiDONE 0.25 MG TABLET. PO SCH (10:10)
[2019-02-06] MEDS: GABAPENTIN 300 MG CAPSULE. PO SCH ×3 (10:10→20:49)
[2019-02-06] MEDS: ASPIRIN ENTERIC COATED 81 MG TABLET.DR. PO SCH (10:11)
[2019-02-06] MEDS: LISINOPRIL 20 MG TABLET PO SCH (10:11)
[2019-02-06] MEDS: FUROSEMIDE 40 MG TABLET. PO SCH (10:11)
[2019-02-06] MEDS: amLODIPine BESYLATE 5 MG TABLET PO SCH (10:12)
[2019-02-06] MEDS: METOPROLOL TART IMMED RELEASE 50 MG TABLET. PO SCH ×2 (10:12→20:48)
[2019-02-06 10:13] LABS: BASO % 0 % (0-3); EOS % 1 % (0-3); HEMOGLOBIN 10.3 g/dL (13.0-17.5); LYMPH # 0.7 x10^3/uL (1.0-4.8); LYMPH % 17 % (24-48); MEAN CORPUSCULAR HEMOGLOBIN 32 pg (25-35); MEAN CORPUSCULAR HGB CONC 33 g/dL (31-37); MEAN CORPUSCULAR VOLUME 96 fL (79-100); MONO # 0.6 x10^3/uL (0.0-1.1); MONO % 15 % (0-9); NEUT # 2.7 x10^3uL (1.8-7.7); NEUT % 67 % (31-73); PLATELET COUNT 275 x10^3/uL (140-400); RED BLOOD COUNT 3.24 x10^6/uL (4.30-5.70); WHITE BLOOD COUNT 4.1 x10^3/uL (4.0-11.0)
[2019-02-06 10:23] LABS: CALCIUM 8.9 mg/dL (8.5-10.1); CREATININE 1.3 mg/dL (0.7-1.3); GFR 68.4; POTASSIUM 3.8 mmol/L (3.5-5.1)
[2019-02-06 11:00] VITALS: BP 166/77
--- NOTE | 2019-02-06 11:54 | PDOC ---
[employer] PROGRESS NOTE Chief Complaint Chief Complaint UTI with sepsis and metabolic encephalopathy. G neg ruchi bacteremia MS HTN Expressive aphasia Old stroke History of Present Illness History of Present Illness Patient seen and examined He is awake and trying to talk but again he has expressive aphasia Discussed with RN Reviewed infectious disease notes (patient is on Zosyn) Patient seen and examined He is a little more talkative today but still has expressive aphasia so not sure what he is saying? Discussed with print controller chart He is currently on IV Vanco and IV Zosyn Vitals/I&O Vitals/I&O: Vital Signs Date Time Temp Pulse Resp B/P (MAP) Pulse Ox O2 Delivery O2 Flow Rate FiO2 02/06/19 10:12 61 142/92 02/06/19 07:00 98.2 18 95 Room Air 98.2 I & O 02/05/19 02/05/19 02/06/19 15:00 23:00 07:00 Intake Total 150 ml 600 ml Balance 150 ml 600 ml Physical Exam Physical Exam: GENERAL: Awake gentleman, not in distress. VITAL SIGNS: Stable HEENT: NAD. NECK: Supple. No JVP. No lymphadenopathy. LUNGS: Clear. HEART: S1, S2 regular. ABDOMEN: Benign. EXTREMITIES: The patient is a total care and not able to stand or walk as my understanding and extremity movements are also limited; although, he can move it. NEUROLOGICAL: The patient also does not follow command, as he kept saying thank you and good morning, but not able to further communicate in a meaningful fashion. General: Alert, mild distress Heart: Regular rate, Normal S1 Lungs: Clear Abdomen: Normal bowel sounds Extremities: No clubbing, No cyanosis Skin: No rashes Labs Labs: Laboratory Tests Test 02/06/19 09:35 White Blood Count 4.1 x10^3/uL (4.0-11.0) Red Blood Count 3.24 x10^6/uL (4.30-5.70) Hemoglobin 10.3 g/dL (13.0-17.5) Hematocrit 31.0 % (39.0-53.0) Mean Corpuscular Volume 96 fL (79-100) Mean Corpuscular Hemoglobin 32 pg (25-35) Mean Corpuscular Hemoglobin Concent 33 g/dL (31-37) Red Cell Distribution Width 15.0 % (11.5-14.5) Platelet Count 275 x10^3/uL (140-400) Neutrophils (%) (Auto) 67 % (31-73) Lymphocytes (%) (Auto) 17 % (24-48) Monocytes (%) (Auto) 15 % (0-9) Eosinophils (%) (Auto) 1 % (0-3) Basophils (%) (Auto) 0 % (0-3) Neutrophils # (Auto) 2.7 x10^3uL (1.8-7.7) Lymphocytes # (Auto) 0.7 x10^3/uL (1.0-4.8) Monocytes # (Auto) 0.6 x10^3/uL (0.0-1.1) Eosinophils # (Auto) 0.0 x10^3/uL (0.0-0.7) Basophils # (Auto) 0.0 x10^3/uL (0.0-0.2) Sodium Level 142 mmol/L (136-145) Potassium Level 3.8 mmol/L (3.5-5.1) Chloride Level 105 mmol/L (98-107) Carbon Dioxide Level 28 mmol/L (21-32) Anion Gap 9 (6-14) Blood Urea Nitrogen 13 mg/dL (8-26) Creatinine 1.3 mg/dL (0.7-1.3) Estimated GFR (Cockcroft-Gault) 68.4 Glucose Level 98 mg/dL (70-99) Calcium Level 8.9 mg/dL (8.5-10.1) Review of Systems Review of Systems: Seems to complain of weakness Assessment and Plan Assessmemt and Plan Problems Medical Problems: (1) Encephalopathy Status: Acute (2) Fever Status: Acute (3) Pneumonia Status: Acute (4) Sepsis secondary to UTI Status: Acute (5) UTI (urinary tract infection) Status: Acute UTI with sepsis and metabolic encephalopathy. G neg ruchi bacteremia MS HTN Expressive aphasia Old stroke Plan IV Zosyn IV fluids PT OT and speech therapy Home meds Cardiac monitoring DVT prophylaxis Supportive care Appreciate subspecialist input Suspect he'll need fpc or rehabilitation on discharge? Comment Review of Relevant I have reviewed the following items davion (where applicable) has been applied. USHA WILSON III DO Feb 06, 2019 11:54
--- NOTE | 2019-02-06 14:39 | NUR ---
[facility] following pt for dc Planning. Chart reviewed and discussed with RN. Pt is known to [facility] from last visit. Pt is from [facility]. Spoke with Cynthia at [facility] and they are able to take pt back for SNU if pt is still appropriate pending insurance approval. [facility] faxed updates to [facility]. Will continue to follow.
[2019-02-06 15:00] VITALS: BP 116/86
--- NOTE | 2019-02-06 15:50 | NUR ---
report received from OLIVA Cuellar. pt transferred to room 584. bed alarm in place.
[2019-02-06 19:00] VITALS: BP 124/92
--- NOTE | 2019-02-06 21:30 | NUR ---
NURSING NOTE Pt has already been restless in bed this shift, but he gets even more agitated when this RN attempts to help with any of his cares. Pt keeps repeating sentences about the time and isn't able to verbalize what he needs. He randomly yells out peoples names and curse words. STIFF LEG DERRICK OPERATOR and the other RN on the unit are able to help calm the pt down. Bed alarm on. Will monitor.
[2019-02-06 23:00] VITALS: BP 138/92
[2019-02-07 03:00] VITALS: BP 129/87
[2019-02-07 04:37] LABS: BASO % 0 % (0-3); EOS % 1 % (0-3); LYMPH # 0.8 x10^3/uL (1.0-4.8); LYMPH % 21 % (24-48); MEAN CORPUSCULAR HEMOGLOBIN 32 pg (25-35); MEAN CORPUSCULAR HGB CONC 33 g/dL (31-37); MEAN CORPUSCULAR VOLUME 95 fL (79-100); MONO # 0.5 x10^3/uL (0.0-1.1); MONO % 14 % (0-9); NEUT # 2.2 x10^3uL (1.8-7.7); NEUT % 63 % (31-73); PLATELET COUNT 308 x10^3/uL (140-400); RED BLOOD COUNT 3.46 x10^6/uL (4.30-5.70); RED CELL DISTRIBUTION WIDTH 14.7 % (11.5-14.5); WHITE BLOOD COUNT 3.5 x10^3/uL (4.0-11.0)
[2019-02-07 05:00] LABS: CREATININE 1.3 mg/dL (0.7-1.3); GFR 68.4; POTASSIUM 3.5 mmol/L (3.5-5.1)
[2019-02-07] MEDS: PIPERACILLIN/TAZOBACTAM 3.375 GM in IV NORMAL SALINE 50ML 50 ML IV SCH ×3 (05:44→18:44)
--- NOTE | 2019-02-07 06:17 | NUR ---
NURSING NOTE Pt very agitated this AM when attempting to get pts brief changed. Pt was talking loudly, pointing his finger and grabbed the PROMOTIONS INTERN's arm firmly. Pt unable to be changed at this time due to behavior.
[2019-02-07] MEDS: TAMSULOSIN 0.4 MG CAP.ER.24H. PO SCH (09:33)
[2019-02-07] MEDS: levETIRAcetam 500 MG TABLET PO SCH ×2 (09:33→21:06)
[2019-02-07] MEDS: FLUTICASONE 50MCG/NASAL SPRAY 16GM BOTTLE. NS SCH (09:33)
[2019-02-07] MEDS: FUROSEMIDE 40 MG TABLET. PO SCH (09:34)
[2019-02-07] MEDS: LISINOPRIL 20 MG TABLET PO SCH (09:34)
[2019-02-07] MEDS: METOPROLOL TART IMMED RELEASE 50 MG TABLET. PO SCH ×2 (09:35→21:06)
[2019-02-07] MEDS: LACTOBACILLUS RHAMNOSUS GG 1 CAPSULE. PO SCH ×2 (09:35→21:06)
[2019-02-07] MEDS: DIVALPROEX DELAYED RELEASE 500 MG TABLET.DR. PO SCH ×2 (09:36→21:06)
[2019-02-07] MEDS: risperiDONE 0.25 MG TABLET. PO SCH (09:36)
[2019-02-07] MEDS: CALCIUM CARB/VIT D3 500/200 TABLET. PO SCH ×2 (09:42→16:49)
[2019-02-07] MEDS: ASPIRIN ENTERIC COATED 81 MG TABLET.DR. PO SCH (09:42)
[2019-02-07] MEDS: amLODIPine BESYLATE 5 MG TABLET PO SCH (09:42)
[2019-02-07] MEDS: PANTOPRAZOLE 40 MG TABLET.DR. PO SCH (09:42)
[2019-02-07] MEDS: GABAPENTIN 300 MG CAPSULE. PO SCH ×3 (09:43→21:06)
[2019-02-07] MEDS: FLECAINIDE ACETATE 50 MG TABLET. PO SCH ×2 (09:43→21:06)
[2019-02-07] MEDS: POLYETHYLENE GLYCOL 3350 17 GM PACKET. PO SCH (09:44)
[2019-02-07] MEDS ORDERED: CIPR250T30 PO (10:27)
[2019-02-07] MEDS ORDERED: LACT1CAP19 PO (10:27)
--- NOTE | 2019-02-07 10:33 | SNU/HH DC ---
DISCHARGE ORDERS DISCHARGE INFORMATION: DISCHARGE DATE: Feb 09, 2019 FINAL DIAGNOSIS UTI hemiparesis post CVA syndrome expressive aphasia Problems Medical Problems: (1) Encephalopathy Status: Acute (2) Fever Status: Acute (3) Pneumonia Status: Acute (4) Sepsis secondary to UTI Status: Acute (5) UTI (urinary tract infection) Status: Acute CONDITION ON DISCHARGE: Stable CODE STATUS: Code Status: Full SENIOR CARE: SNF STAY <30 DAYS: Yes POST DISCHARGE ORDERS: ACTIVITY ORDERS: No restrictions, Activity as tolerated WEIGHT BEARING STATUS: No restrictions, As tolerated DIET AFTER DISCHARGE: Regular WOUND/INCISION CARE: No wound care needed FOLLOW-UP: PHYSICIAN FOLLOW-UP: primary care TREATMENT/EQUIPMENT ORDERS: ADAPTIVE EQUIPMENT NEEDED: Front wheeled walker, Wheelchair Physical Therapy For: Evalulation/Treatment Occupational Therapy For: Evaluation/Treatment DISCHARGE MEDICATIONS: Home Meds Active Scripts Lactobacillus Rhamnosus Gg (CULTURELLE) 1 Each Cap.sprink, 1 CAP PO BID for gut health on antibiotics, #20 CAP Prov:AFIA CUEVAS MD 02/07/19 Ciprofloxacin Hcl (CIPRO) 250 Mg Tablet, 1 TAB PO BID for UTI, #14 TAB Prov:AFIA CUEVAS MD 02/07/19 Levetiracetam (KEPPRA) 500 Mg Tablet, 1 TAB PO BID for seizure, #60 TAB 1 Refill Prov:AFIA CUEVAS MD 01/23/19 Risperidone (RISPERDAL) 0.25 Mg Tablet, 0.25 MG PO DAILY08 for mood, #30 TAB Prov:AFIA CUEVAS MD 01/23/19 Reported Medications Tamsulosin Hcl (TAMSULOSIN HCL) 0.4 Mg Cap.er.24h, 1 CAP PO DAILY, #30 CAP 5 Refills 09/05/15 Polyethylene Glycol 3350 (MIRALAX) 17 Gm Powd.pack, 1 PKT PO DAILY, PKT 09/05/15 Oxycodone Hcl (OXYCODONE HCL) 5 Mg Capsule, 5 MG PO PRN Q4HRS PRN for PAIN, TAB 0 Refills 09/05/15 Omeprazole (OMEPRAZOLE) 20 Mg Tablet.dr, 1 TAB PO DAILY, #90 TAB 1 Refill 09/05/15 Metoprolol Tartrate (METOPROLOL TARTRATE) 50 Mg Tablet, 1 TAB PO BID, #60 TAB 5 Refills 09/05/15 Lisinopril (LISINOPRIL) 40 Mg Tablet, 1 TAB PO DAILY, #30 TAB 5 Refills 09/05/15 Ibuprofen (IBUPROFEN) 600 Mg Tablet, 600 MG PO PRN Q8HRS PRN for INFLAMMATION, TAB 09/05/15 Gabapentin (GABAPENTIN ) 300 Mg Capsule, 300 MG PO TID, CAP 09/05/15 Furosemide (FUROSEMIDE) 40 Mg Tablet, 1 TAB PO DAILY, #30 TAB 5 Refills 09/05/15 Fluticasone Propionate (Flonase Allergy Relief) 9.9 Ml [place].susp, 2 SPRAYS NS DAILY, BOTTLE 09/05/15 Flecainide Acetate (FLECAINIDE ACETATE) 100 Mg Tablet, 1 TAB PO BID, #60 TAB 5 Refills 09/05/15 Fingolimod Hcl (GILENYA) 0.5 Mg Capsule, 0.5 MG PO DAILY 09/05/15 Divalproex Sodium (DIVALPROEX SODIUM) 500 Mg Tablet.dr, 1 TAB PO BID, #60 TAB 1 Refill 09/05/15 Cyclobenzaprine Hcl (CYCLOBENZAPRINE HCL) 10 Mg Tablet, 1 TAB PO TID PRN for MUSCLE SPASTICITY, #90 TAB 09/05/15 Clonidine (CLONIDINE TTS-3) 1 Each Patch.tdwk, 1 PATCH TD WEEKLY, PATCH 09/05/15 Cetirizine Hcl (CETIRIZINE HCL) 10 Mg Tablet, 1 TAB PO PRN DAILY PRN for ALLERGIES, #30 TAB 5 Refills 09/05/15 Ca Carb/D3/Mag Ox/Insurance Representative/Carlos/Zn (Caltrate+D3 Plus Mineral Minis) 1 Each Tablet, 1 EACH PO BID 09/05/15 Butalb/Acetaminophen/Caffeine (HMHGDO-EYHGFNAG-IAJR 50-325-40) 1 Each Tablet, 1 EACH PO PRN Q4HRS PRN for HEADACHE 09/05/15 Aspirin (ASPIR 81) 81 Mg Tablet.dr, 1 TAB PO DAILY, #30 TAB 5 Refills 09/05/15 Amlodipine Besylate (AMLODIPINE BESYLATE) 5 Mg Tablet, 7.5 MG PO DAILY, TAB 09/05/15 AFIA CUEVAS MD Feb 07, 2019 10:33
[2019-02-07 11:00] VITALS: BP 114/79
--- NOTE | 2019-02-07 13:40 | NUR ---
Pt to DC back to [place] via transportation @ 1400. IV removed, pt to be showered and dressed for transportation,.
--- NOTE | 2019-02-07 13:51 | PDOC3 ---
Discharge Summary Visit Information Date of Admission: Feb 04, 2019 Date of Discharge: Feb 07, 2019 Final Diagnosis UTI with sepsis and metabolic encephalopathy. G neg ruchi bacteremia MS HTN Expressive aphasia Old stroke, with some vascular dementia, Problems Medical Problems: (1) Encephalopathy Status: Acute (2) Fever Status: Acute (3) Pneumonia Status: Acute (4) Sepsis secondary to UTI Status: Acute (5) UTI (urinary tract infection) Status: Acute Brief Hospital Course Allergies Allergies Coded Allergies Type Severity Reaction Last Updated Verified No Known Drug Allergies 09/03/15 No Vital Signs Vital Signs Date Time Temp Pulse Resp B/P (MAP) Pulse Ox O2 Delivery O2 Flow Rate FiO2 02/07/19 11:00 98.4 61 21 114/79 (91) 99 Room Air 98.4 Lab Results Laboratory Tests Test 02/06/19 09:35 02/07/19 03:45 White Blood Count 4.1 x10^3/uL (4.0-11.0) 3.5 x10^3/uL (4.0-11.0) Red Blood Count 3.24 x10^6/uL (4.30-5.70) 3.46 x10^6/uL (4.30-5.70) Hemoglobin 10.3 g/dL (13.0-17.5) 11.0 g/dL (13.0-17.5) Hematocrit 31.0 % (39.0-53.0) 33.0 % (39.0-53.0) Mean Corpuscular Volume 96 fL (79-100) 95 fL (79-100) Mean Corpuscular Hemoglobin 32 pg (25-35) 32 pg (25-35) Mean Corpuscular Hemoglobin Concent 33 g/dL (31-37) 33 g/dL (31-37) Red Cell Distribution Width 15.0 % (11.5-14.5) 14.7 % (11.5-14.5) Platelet Count 275 x10^3/uL (140-400) 308 x10^3/uL (140-400) Neutrophils (%) (Auto) 67 % (31-73) 63 % (31-73) Lymphocytes (%) (Auto) 17 % (24-48) 21 % (24-48) Monocytes (%) (Auto) 15 % (0-9) 14 % (0-9) Eosinophils (%) (Auto) 1 % (0-3) 1 % (0-3) Basophils (%) (Auto) 0 % (0-3) 0 % (0-3) Neutrophils # (Auto) 2.7 x10^3uL (1.8-7.7) 2.2 x10^3uL (1.8-7.7) Lymphocytes # (Auto) 0.7 x10^3/uL (1.0-4.8) 0.8 x10^3/uL (1.0-4.8) Monocytes # (Auto) 0.6 x10^3/uL (0.0-1.1) 0.5 x10^3/uL (0.0-1.1) Eosinophils # (Auto) 0.0 x10^3/uL (0.0-0.7) 0.0 x10^3/uL (0.0-0.7) Basophils # (Auto) 0.0 x10^3/uL (0.0-0.2) 0.0 x10^3/uL (0.0-0.2) Sodium Level 142 mmol/L (136-145) 143 mmol/L (136-145) Potassium Level 3.8 mmol/L (3.5-5.1) 3.5 mmol/L (3.5-5.1) Chloride Level 105 mmol/L (98-107) 104 mmol/L (98-107) Carbon Dioxide Level 28 mmol/L (21-32) 28 mmol/L (21-32) Anion Gap 9 (6-14) 11 (6-14) Blood Urea Nitrogen 13 mg/dL (8-26) 13 mg/dL (8-26) Creatinine 1.3 mg/dL (0.7-1.3) 1.3 mg/dL (0.7-1.3) Estimated GFR (Cockcroft-Gault) 68.4 68.4 Glucose Level 98 mg/dL (70-99) 90 mg/dL (70-99) Calcium Level 8.9 mg/dL (8.5-10.1) 9.0 mg/dL (8.5-10.1) Laboratory Tests Test 02/07/19 03:45 White Blood Count 3.5 x10^3/uL (4.0-11.0) Red Blood Count 3.46 x10^6/uL (4.30-5.70) Hemoglobin 11.0 g/dL (13.0-17.5) Hematocrit 33.0 % (39.0-53.0) Mean Corpuscular Volume 95 fL (79-100) Mean Corpuscular Hemoglobin 32 pg (25-35) Mean Corpuscular Hemoglobin Concent 33 g/dL (31-37) Red Cell Distribution Width 14.7 % (11.5-14.5) Platelet Count 308 x10^3/uL (140-400) Neutrophils (%) (Auto) 63 % (31-73) Lymphocytes (%) (Auto) 21 % (24-48) Monocytes (%) (Auto) 14 % (0-9) Eosinophils (%) (Auto) 1 % (0-3) Basophils (%) (Auto) 0 % (0-3) Neutrophils # (Auto) 2.2 x10^3uL (1.8-7.7) Lymphocytes # (Auto) 0.8 x10^3/uL (1.0-4.8) Monocytes # (Auto) 0.5 x10^3/uL (0.0-1.1) Eosinophils # (Auto) 0.0 x10^3/uL (0.0-0.7) Basophils # (Auto) 0.0 x10^3/uL (0.0-0.2) Sodium Level 143 mmol/L (136-145) Potassium Level 3.5 mmol/L (3.5-5.1) Chloride Level 104 mmol/L (98-107) Carbon Dioxide Level 28 mmol/L (21-32) Anion Gap 11 (6-14) Blood Urea Nitrogen 13 mg/dL (8-26) Creatinine 1.3 mg/dL (0.7-1.3) Estimated GFR (Cockcroft-Gault) 68.4 Glucose Level 90 mg/dL (70-99) Calcium Level 9.0 mg/dL (8.5-10.1) Brief Hospital Course Mr. Mendez is a 58 old male, lives in half-way from debilty weakness, cog impairment post CVA. admit with worse confusion, + UTI better at DC, cont abx course Discharge Information Condition at Discharge: Improved Follow Up: Weeks Disposition/Orders: D/C to Another Facility (SNU) Scheduled Amlodipine Besylate (Amlodipine Besylate) 5 Mg Tablet, 7.5 MG PO DAILY, (Reported) Entered as Reported by: Zoë Cano on 09/05/151057 Last Action: Continued on 02/05/19951 by EMMA CARDONA Aspirin (Aspir 81) 81 Mg Tablet.dr, 1 TAB PO DAILY, #30 Ref 5 (Reported) Entered as Reported by: Zoë Cano on 09/05/151057 Last Action: Continued on 02/05/19951 by EMMA CARDONA Ca Carb/D3/Mag Ox/Outside Machinist Apprentice/Carlos/Zn (Caltrate+D3 Plus Mineral Minis) 1 Each Tablet, 1 EACH PO BID, (Reported) Entered as Reported by: Zoë Cano on 09/05/151057 Last Action: Converted on 02/05/19951 by EMMA CARDONA Ciprofloxacin Hcl (Cipro) 250 Mg Tablet, 1 TAB PO BID for UTI, #14 Prescribed by: AFIA CUEVAS on 02/07/191026 Clonidine (Clonidine Tts-3) 1 Each Patch.tdwk, 1 PATCH TD WEEKLY, (Reported) Entered as Reported by: Zoë Cano on 09/05/151057 Last Action: Continued on 02/05/19951 by EMMA CARDONA Divalproex Sodium (Divalproex Sodium) 500 Mg Tablet.dr, 1 TAB PO BID, #60 Ref 1 (Reported) Entered as Reported by: Zoë Cano on 09/05/151057 Last Action: Converted on 02/05/19951 by EMMA CARDONA Fingolimod Hcl (Gilenya) 0.5 Mg Capsule, 0.5 MG PO DAILY, (Reported) Entered as Reported by: Zoë Cano on 09/05/151057 Last Action: Converted on 02/05/19951 by EMMA CARDONA Flecainide Acetate (Flecainide Acetate) 100 Mg Tablet, 1 TAB PO BID, #60 Ref 5 (Reported) Entered as Reported by: Zoë Cano on 09/05/151057 Last Action: Converted on 02/05/19951 by EMMA CARDONA Fluticasone Propionate (Flonase Allergy Relief) 9.9 Ml [place].susp, 2 SPRAYS NS DAILY, (Reported) Entered as Reported by: Zoë Cano on 09/05/151057 Last Action: Converted on 02/05/19951 by EMMA CARDONA Furosemide (Furosemide) 40 Mg Tablet, 1 TAB PO DAILY, #30 Ref 5 (Reported) Entered as Reported by: Zoë Cano on 09/05/151057 Last Action: Continued on 02/05/19951 by EMMA CARDONA Gabapentin (Gabapentin ) 300 Mg Capsule, 300 MG PO TID, (Reported) Entered as Reported by: Zoë Cano on 09/05/151057 Last Action: Continued on 02/05/19951 by EMMA CARDONA Lactobacillus Rhamnosus Gg (Culturelle) 1 Each Cap.sprink, 1 CAP PO BID for gut health on antibiotics, #20 Prescribed by: AFIA CUEVAS on 02/07/19 1027 Levetiracetam (Keppra) 500 Mg Tablet, 1 TAB PO BID for seizure, #60 Ref 1 Prescribed by: AFIA CUEVAS on 01/23/19 1016 Last Action: Continued on 02/05/19951 by EMMA CARDONA Lisinopril (Lisinopril) 40 Mg Tablet, 1 TAB PO DAILY, #30 Ref 5 (Reported) Entered as Reported by: Zoë Cano on 09/05/151057 Last Action: Continued on 02/05/19951 by EMMA CARDONA Metoprolol Tartrate (Metoprolol Tartrate) 50 Mg Tablet, 1 TAB PO BID, #60 Ref 5 (Reported) Entered as Reported by: Zoë Cano on 09/05/151057 Last Action: Continued on 02/05/19951 by EMMA CARDONA Omeprazole (Omeprazole) 20 Mg Tablet.dr, 1 TAB PO DAILY, #90 Ref 1 (Reported) Entered as Reported by: Zoë Cano on 09/05/151057 Last Action: Converted on 02/05/19951 by EMMA CARDONA Polyethylene Glycol 3350 (Miralax) 17 Gm Powd.pack, 1 PKT PO DAILY, (Reported) Entered as Reported by: Zoë Cano on 09/05/151057 Last Action: Converted on 02/05/19951 by EMMA CARDONA Risperidone (Risperdal) 0.25 Mg Tablet, 0.25 MG PO DAILY08 for mood, #30 Prescribed by: AFIA CUEVAS on 01/23/19 1006 Last Action: Converted on 02/05/19951 by EMMA CARDONA Tamsulosin Hcl (Tamsulosin Hcl) 0.4 Mg Cap.er.24h, 1 CAP PO DAILY, #30 Ref 5 (Reported) Entered as Reported by: Zoë Cano on 09/05/151057 Last Action: Continued on 02/05/19951 by EMMA CARDONA Scheduled PRN Butalb/Acetaminophen/Caffeine (Zovlwc-Kubjtilo-Uqyf 50-325-40) 1 Each Tablet, 1 EACH PO PRN Q4HRS PRN for HEADACHE, (Reported) Entered as Reported by: Zoë Cano on 09/05/151057 Last Action: Converted on 02/05/19951 by EMMA CARDONA Cetirizine Hcl (Cetirizine Hcl) 10 Mg Tablet, 1 TAB PO PRN DAILY PRN for ALLERGIES, #30 Ref 5 (Reported) Entered as Reported by: Zoë Cano on 09/05/151057 Last Action: Continued on 02/05/19951 by EMMA CARDONA Cyclobenzaprine Hcl (Cyclobenzaprine Hcl) 10 Mg Tablet, 1 TAB PO TID PRN for MUSCLE SPASTICITY, #90 (Reported) Entered as Reported by: Zoë Cano on 09/05/151057 Last Action: Continued on 02/05/19951 by EMMA CARDONA Ibuprofen (Ibuprofen) 600 Mg Tablet, 600 MG PO PRN Q8HRS PRN for INFLAMMATION, (Reported) Entered as Reported by: Zoë Cano on 09/05/151057 Last Action: Converted on 02/05/19951 by EMMA CARDONA Oxycodone Hcl (Oxycodone Hcl) 5 Mg Capsule, 5 MG PO PRN Q4HRS PRN for PAIN, Ref 0 (Reported) Entered as Reported by: Zoë Cano on 09/05/151057 Last Action: Converted on 02/05/19951 by EMMA CARDONA Patient Instructions Patient Instructions > 30 min face to face AFIA CUEVAS MD Feb 07, 2019 13:51
[2019-02-07 15:00] VITALS: BP 121/86
--- NOTE | 2019-02-07 15:00 | NUR ---
Per ID, pt is NOT to DC today. Positive blood cultures noted, but sensitivity unknown for same. Pt to remain 1-2 days for verification of sensitivity to abx. Pt, Bhaskar, and pt's mother, Audrey, notified of change in plans.
--- NOTE | 2019-02-07 15:25 | PDOC ---
Infectious Disease Note Subjective Subjective Comfortable No fevers last 24 hours + soft BM ROS ROS per HPI Vital Sign Vital Signs Vital Signs Date Time Temp Pulse Resp B/P (MAP) Pulse Ox O2 Delivery O2 Flow Rate FiO2 02/07/19 11:00 98.4 61 21 114/79 (91) 99 Room Air 98.4 Physical Exam PHYSICAL EXAM GENERAL: Propped up in bed, alert, NAD HEENT: Oral cavity clear NECK: Supple. LUNGS: Clear. HEART: S1, S2 regular. ABDOMEN: Soft EXTREMITIES: No edema SKIN: warm to touch PRESCRIPTION EYEGLASS MAKER: Alert, expressive asphasia PIV Labs Lab Laboratory Tests Test 02/07/19 03:45 White Blood Count 3.5 x10^3/uL (4.0-11.0) Red Blood Count 3.46 x10^6/uL (4.30-5.70) Hemoglobin 11.0 g/dL (13.0-17.5) Hematocrit 33.0 % (39.0-53.0) Mean Corpuscular Volume 95 fL (79-100) Mean Corpuscular Hemoglobin 32 pg (25-35) Mean Corpuscular Hemoglobin Concent 33 g/dL (31-37) Red Cell Distribution Width 14.7 % (11.5-14.5) Platelet Count 308 x10^3/uL (140-400) Neutrophils (%) (Auto) 63 % (31-73) Lymphocytes (%) (Auto) 21 % (24-48) Monocytes (%) (Auto) 14 % (0-9) Eosinophils (%) (Auto) 1 % (0-3) Basophils (%) (Auto) 0 % (0-3) Neutrophils # (Auto) 2.2 x10^3uL (1.8-7.7) Lymphocytes # (Auto) 0.8 x10^3/uL (1.0-4.8) Monocytes # (Auto) 0.5 x10^3/uL (0.0-1.1) Eosinophils # (Auto) 0.0 x10^3/uL (0.0-0.7) Basophils # (Auto) 0.0 x10^3/uL (0.0-0.2) Sodium Level 143 mmol/L (136-145) Potassium Level 3.5 mmol/L (3.5-5.1) Chloride Level 104 mmol/L (98-107) Carbon Dioxide Level 28 mmol/L (21-32) Anion Gap 11 (6-14) Blood Urea Nitrogen 13 mg/dL (8-26) Creatinine 1.3 mg/dL (0.7-1.3) Estimated GFR (Cockcroft-Gault) 68.4 Glucose Level 90 mg/dL (70-99) Calcium Level 9.0 mg/dL (8.5-10.1) Micro BLD CULT RESULT 1 Preliminary Gram negative rods URINE CULTURE RES 1 Final Escherichia coli MICS are expressed in micrograms per mL Antibiotic RSLT#1 Amoxicillin/Clavulanic Acid S =8 Ampicillin R>=32 Cefepime S<=0.12 Ceftriaxone S<=0.25 Cefuroxime S =4 Ciprofloxacin S<=0.25 Ertapenem S<=0.12 Gentamicin S<=1 Imipenem S<=0.25 Levofloxacin S<=0.12 Meropenem S<=0.25 Nitrofurantoin S<=16 Piperacillin/Tazobactam S<=4 Tetracycline S<=1 Tobramycin S<=1 Trimethoprim/Sulfa S<=20 Objective Assessment G neg ruchi bacteremia with sepsis (POA) E. coli UTI (POA) Leukopenia Encephalopathy, improved MS HTN Plan Plan of Care Continue Zosyn awaiting GNR ID in blood f/u CBC in am Hold discharge D/w nursing D/w Dr. Arellano Patient seen and examined. Chart reviewed in detail. Case discussed with ALLERGY PHYSICIAN. Agree with above plan. LIS ROSA APRN Feb 07, 2019 15:25 SANDRO SIEGEL MD Feb 07, 2019 21:19
[2019-02-07] MEDS: oxyCODONE IR 5 MG TABLET PO PRN (16:50)
[2019-02-07 19:00] VITALS: BP 124/87
[2019-02-07 22:38] VITALS: BP 130/97
[2019-02-08] MEDS: PIPERACILLIN/TAZOBACTAM 3.375 GM in IV NORMAL SALINE 50ML 50 ML IV SCH ×4 (00:27→17:00)
[2019-02-08] MEDS: PANTOPRAZOLE 40 MG TABLET.DR. PO SCH (07:12)
[2019-02-08 07:59] VITALS: BP 133/91
[2019-02-08] MEDS: POLYETHYLENE GLYCOL 3350 17 GM PACKET. PO SCH (09:00)
[2019-02-08] MEDS ORDERED: HALOPERIDOL LACTATE 5 MG/ML VIAL. IVP ONE (09:30)
[2019-02-08] MEDS: levETIRAcetam 500 MG TABLET PO SCH ×2 (09:54→20:55)
[2019-02-08] MEDS: FLUTICASONE 50MCG/NASAL SPRAY 16GM BOTTLE. NS SCH (09:54)
[2019-02-08] MEDS: risperiDONE 0.25 MG TABLET. PO SCH (09:55)
[2019-02-08] MEDS: ASPIRIN ENTERIC COATED 81 MG TABLET.DR. PO SCH (09:55)
[2019-02-08] MEDS: METOPROLOL TART IMMED RELEASE 50 MG TABLET. PO SCH ×2 (09:55→20:56)
[2019-02-08] MEDS: GABAPENTIN 300 MG CAPSULE. PO SCH ×3 (09:55→20:55)
[2019-02-08] MEDS: LACTOBACILLUS RHAMNOSUS GG 1 CAPSULE. PO SCH ×2 (09:55→20:55)
[2019-02-08] MEDS: TAMSULOSIN 0.4 MG CAP.ER.24H. PO SCH (09:55)
[2019-02-08] MEDS: DIVALPROEX DELAYED RELEASE 500 MG TABLET.DR. PO SCH ×2 (09:56→20:55)
[2019-02-08] MEDS: CALCIUM CARB/VIT D3 500/200 TABLET. PO SCH ×2 (09:56→17:00)
[2019-02-08] MEDS: FUROSEMIDE 40 MG TABLET. PO SCH (09:56)
[2019-02-08] MEDS: LISINOPRIL 20 MG TABLET PO SCH (09:56)
[2019-02-08] MEDS: FLECAINIDE ACETATE 50 MG TABLET. PO SCH ×2 (09:56→20:56)
[2019-02-08] MEDS: amLODIPine BESYLATE 5 MG TABLET PO SCH (09:57)
[2019-02-08 11:59] VITALS: BP 125/58
[2019-02-08 12:45] LABS: BASO % 0 % (0-3); EOS % 1 % (0-3); HEMATOCRIT 33.3 % (39.0-53.0); HEMOGLOBIN 11.6 g/dL (13.0-17.5); LYMPH # 0.7 x10^3/uL (1.0-4.8); LYMPH % 16 % (24-48); MEAN CORPUSCULAR HEMOGLOBIN 33 pg (25-35); MEAN CORPUSCULAR HGB CONC 35 g/dL (31-37); MEAN CORPUSCULAR VOLUME 95 fL (79-100); MONO # 0.4 x10^3/uL (0.0-1.1); MONO % 10 % (0-9); NEUT % 73 % (31-73); PLATELET COUNT 383 x10^3/uL (140-400); RED CELL DISTRIBUTION WIDTH 14.5 % (11.5-14.5); WHITE BLOOD COUNT 4.1 x10^3/uL (4.0-11.0)
[2019-02-08 12:54] LABS: CALCIUM 9.5 mg/dL (8.5-10.1); CREATININE 1.3 mg/dL (0.7-1.3); GFR 68.4; POTASSIUM 3.6 mmol/L (3.5-5.1)
--- NOTE | 2019-02-08 14:09 | PDOC ---
Infectious Disease Note Subjective Subjective Comfortable No fevers last 48 hours + soft BM Vital Sign Vital Signs Vital Signs Date Time Temp Pulse Resp B/P (MAP) Pulse Ox O2 Delivery O2 Flow Rate FiO2 02/08/19 11:59 97.7 66 20 125/58 (80) 96 Room Air 97.7 Physical Exam PHYSICAL EXAM GENERAL: Propped up in bed, alert, NAD HEENT: Oral cavity clear NECK: Supple. LUNGS: Clear. HEART: S1, S2 regular. 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 touch HEAD PORTER: Alert, expressive asphasia PIV Labs Lab Laboratory Tests Test 02/08/19 10:52 White Blood Count 4.1 x10^3/uL (4.0-11.0) Red Blood Count 3.50 x10^6/uL (4.30-5.70) Hemoglobin 11.6 g/dL (13.0-17.5) Hematocrit 33.3 % (39.0-53.0) Mean Corpuscular Volume 95 fL (79-100) Mean Corpuscular Hemoglobin 33 pg (25-35) Mean Corpuscular Hemoglobin Concent 35 g/dL (31-37) Red Cell Distribution Width 14.5 % (11.5-14.5) Platelet Count 383 x10^3/uL (140-400) Neutrophils (%) (Auto) 73 % (31-73) Lymphocytes (%) (Auto) 16 % (24-48) Monocytes (%) (Auto) 10 % (0-9) Eosinophils (%) (Auto) 1 % (0-3) Basophils (%) (Auto) 0 % (0-3) Neutrophils # (Auto) 3.0 x10^3uL (1.8-7.7) Lymphocytes # (Auto) 0.7 x10^3/uL (1.0-4.8) Monocytes # (Auto) 0.4 x10^3/uL (0.0-1.1) Eosinophils # (Auto) 0.0 x10^3/uL (0.0-0.7) Basophils # (Auto) 0.0 x10^3/uL (0.0-0.2) Sodium Level 144 mmol/L (136-145) Potassium Level 3.6 mmol/L (3.5-5.1) Chloride Level 105 mmol/L (98-107) Carbon Dioxide Level 28 mmol/L (21-32) Anion Gap 11 (6-14) Blood Urea Nitrogen 16 mg/dL (8-26) Creatinine 1.3 mg/dL (0.7-1.3) Estimated GFR (Cockcroft-Gault) 68.4 Glucose Level 90 mg/dL (70-99) Calcium Level 9.5 mg/dL (8.5-10.1) Micro BLD CULT RESULT 1 Preliminary Gram negative rods URINE CULTURE RES 1 Final Escherichia coli MICS are expressed in micrograms per mL Antibiotic RSLT#1 Amoxicillin/Clavulanic Acid S =8 Ampicillin R>=32 Cefepime S<=0.12 Ceftriaxone S<=0.25 Cefuroxime S =4 Ciprofloxacin S<=0.25 Ertapenem S<=0.12 Gentamicin S<=1 Imipenem S<=0.25 Levofloxacin S<=0.12 Meropenem S<=0.25 Nitrofurantoin S<=16 Piperacillin/Tazobactam S<=4 Tetracycline S<=1 Tobramycin S<=1 Trimethoprim/Sulfa S<=20 Objective Assessment G neg ruchi bacteremia with sepsis (POA) E. coli UTI (POA) Leukopenia - better Encephalopathy, improved MS HTN Plan Plan of Care Continue Zosyn Probiotics awaiting GNR ID in blood Hold discharge D/w nursing Patient seen and examined. Chart reviewed in detail. Case discussed with [employer]M INSPECT[employer]. Agree with above plan. LIS ROSA APRN Feb 08, 2019 14:09 SANDRO SIEGEL MD Feb 08, 2019 21:47
[2019-02-08 15:00] VITALS: BP 116/81
--- NOTE | 2019-02-08 15:28 | PDOC ---
PROGRESS NOTES Chief Complaint Chief Complaint LATE ENTRY, tried to DC on 02/07, ID consult wanted to stay for blood cx was indeterminate UTI with sepsis and metabolic encephalopathy. G neg ruchi bacteremia MS HTN Expressive aphasia Old stroke History of Present Illness History of Present Illness 02/07. he felt well, tired to be be DC Patient seen and examined He is awake and trying to talk but again he has expressive aphasia Discussed with RN Reviewed infectious disease notes (patient is on Zosyn) Patient seen and examined He is a little more talkative today but still has expressive aphasia so not sure what he is saying? 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 LUNGS: Clear. HEART: S1, S2 regular. 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 PIV General: Alert, mild distress Heart: Regular rate, Normal S1 Lungs: Clear Abdomen: Normal bowel sounds Extremities: No clubbing, No cyanosis Skin: No rashes Labs LABS Laboratory Tests Test 02/08/19 10:52 White Blood Count 4.1 x10^3/uL (4.0-11.0) Red Blood Count 3.50 x10^6/uL (4.30-5.70) Hemoglobin 11.6 g/dL (13.0-17.5) Hematocrit 33.3 % (39.0-53.0) Mean Corpuscular Volume 95 fL (79-100) Mean Corpuscular Hemoglobin 33 pg (25-35) Mean Corpuscular Hemoglobin Concent 35 g/dL (31-37) Red Cell Distribution Width 14.5 % (11.5-14.5) Platelet Count 383 x10^3/uL (140-400) Neutrophils (%) (Auto) 73 % (31-73) Lymphocytes (%) (Auto) 16 % (24-48) Monocytes (%) (Auto) 10 % (0-9) Eosinophils (%) (Auto) 1 % (0-3) Basophils (%) (Auto) 0 % (0-3) Neutrophils # (Auto) 3.0 x10^3uL (1.8-7.7) Lymphocytes # (Auto) 0.7 x10^3/uL (1.0-4.8) Monocytes # (Auto) 0.4 x10^3/uL (0.0-1.1) Eosinophils # (Auto) 0.0 x10^3/uL (0.0-0.7) Basophils # (Auto) 0.0 x10^3/uL (0.0-0.2) Sodium Level 144 mmol/L (136-145) Potassium Level 3.6 mmol/L (3.5-5.1) Chloride Level 105 mmol/L (98-107) Carbon Dioxide Level 28 mmol/L (21-32) Anion Gap 11 (6-14) Blood Urea Nitrogen 16 mg/dL (8-26) Creatinine 1.3 mg/dL (0.7-1.3) Estimated GFR (Cockcroft-Gault) 68.4 Glucose Level 90 mg/dL (70-99) Calcium Level 9.5 mg/dL (8.5-10.1) Assessment and Plan Assessmemt and Plan Problems Medical Problems: (1) Encephalopathy Status: Acute (2) Fever Status: Acute (3) Pneumonia Status: Acute (4) Sepsis secondary to UTI Status: Acute (5) UTI (urinary tract infection) Status: Acute Comment Review of Relevant I have reviewed the following items davion (where applicable) has been applied. Labs Laboratory Tests Test 02/07/19 03:45 02/08/19 10:52 White Blood Count 3.5 x10^3/uL (4.0-11.0) 4.1 x10^3/uL (4.0-11.0) Red Blood Count 3.46 x10^6/uL (4.30-5.70) 3.50 x10^6/uL (4.30-5.70) Hemoglobin 11.0 g/dL (13.0-17.5) 11.6 g/dL (13.0-17.5) Hematocrit 33.0 % (39.0-53.0) 33.3 % (39.0-53.0) Mean Corpuscular Volume 95 fL (79-100) 95 fL (79-100) Mean Corpuscular Hemoglobin 32 pg (25-35) 33 pg (25-35) Mean Corpuscular Hemoglobin Concent 33 g/dL (31-37) 35 g/dL (31-37) Red Cell Distribution Width 14.7 % (11.5-14.5) 14.5 % (11.5-14.5) Platelet Count 308 x10^3/uL (140-400) 383 x10^3/uL (140-400) Neutrophils (%) (Auto) 63 % (31-73) 73 % (31-73) Lymphocytes (%) (Auto) 21 % (24-48) 16 % (24-48) Monocytes (%) (Auto) 14 % (0-9) 10 % (0-9) Eosinophils (%) (Auto) 1 % (0-3) 1 % (0-3) Basophils (%) (Auto) 0 % (0-3) 0 % (0-3) Neutrophils # (Auto) 2.2 x10^3uL (1.8-7.7) 3.0 x10^3uL (1.8-7.7) Lymphocytes # (Auto) 0.8 x10^3/uL (1.0-4.8) 0.7 x10^3/uL (1.0-4.8) Monocytes # (Auto) 0.5 x10^3/uL (0.0-1.1) 0.4 x10^3/uL (0.0-1.1) Eosinophils # (Auto) 0.0 x10^3/uL (0.0-0.7) 0.0 x10^3/uL (0.0-0.7) Basophils # (Auto) 0.0 x10^3/uL (0.0-0.2) 0.0 x10^3/uL (0.0-0.2) Sodium Level 143 mmol/L (136-145) 144 mmol/L (136-145) Potassium Level 3.5 mmol/L (3.5-5.1) 3.6 mmol/L (3.5-5.1) Chloride Level 104 mmol/L (98-107) 105 mmol/L (98-107) Carbon Dioxide Level 28 mmol/L (21-32) 28 mmol/L (21-32) Anion Gap 11 (6-14) 11 (6-14) Blood Urea Nitrogen 13 mg/dL (8-26) 16 mg/dL (8-26) Creatinine 1.3 mg/dL (0.7-1.3) 1.3 mg/dL (0.7-1.3) Estimated GFR (Cockcroft-Gault) 68.4 68.4 Glucose Level 90 mg/dL (70-99) 90 mg/dL (70-99) Calcium Level 9.0 mg/dL (8.5-10.1) 9.5 mg/dL (8.5-10.1) Laboratory Tests Test 02/08/19 10:52 White Blood Count 4.1 x10^3/uL (4.0-11.0) Red Blood Count 3.50 x10^6/uL (4.30-5.70) Hemoglobin 11.6 g/dL (13.0-17.5) Hematocrit 33.3 % (39.0-53.0) Mean Corpuscular Volume 95 fL (79-100) Mean Corpuscular Hemoglobin 33 pg (25-35) Mean Corpuscular Hemoglobin Concent 35 g/dL (31-37) Red Cell Distribution Width 14.5 % (11.5-14.5) Platelet Count 383 x10^3/uL (140-400) Neutrophils (%) (Auto) 73 % (31-73) Lymphocytes (%) (Auto) 16 % (24-48) Monocytes (%) (Auto) 10 % (0-9) Eosinophils (%) (Auto) 1 % (0-3) Basophils (%) (Auto) 0 % (0-3) Neutrophils # (Auto) 3.0 x10^3uL (1.8-7.7) Lymphocytes # (Auto) 0.7 x10^3/uL (1.0-4.8) Monocytes # (Auto) 0.4 x10^3/uL (0.0-1.1) Eosinophils # (Auto) 0.0 x10^3/uL (0.0-0.7) Basophils # (Auto) 0.0 x10^3/uL (0.0-0.2) Sodium Level 144 mmol/L (136-145) Potassium Level 3.6 mmol/L (3.5-5.1) Chloride Level 105 mmol/L (98-107) Carbon Dioxide Level 28 mmol/L (21-32) Anion Gap 11 (6-14) Blood Urea Nitrogen 16 mg/dL (8-26) Creatinine 1.3 mg/dL (0.7-1.3) Estimated GFR (Cockcroft-Gault) 68.4 Glucose Level 90 mg/dL (70-99) Calcium Level 9.5 mg/dL (8.5-10.1) Microbiology 02/04/19 Blood Culture - Preliminary, Resulted 02/04/19 Blood Culture Result 1 (JAYDA) - Preliminary, Resulted 02/04/19 Urine Culture - Final, Complete 02/04/19 Urine Culture Result 1 (JAYDA) - Final, Complete 02/04/19 Antimicrobic Susceptibility - Final, Complete Medications Current Medications Acetaminophen (Tylenol) 1,000 mg 1X ONCE PO ; Start 02/04/19 at 12:15; Stop 02/04/19 at 12:16; Status DC Sodium Chloride 1,000 ml @ 1,000 mls/hr Q1H IV Last administered on 02/04/19at 12:56; Start 02/04/19 at 12:07; Stop 02/04/19 at 13:06; Status DC Ceftriaxone Sodium (Rocephin) 1 gm 1X ONCE IVP Last administered on 02/04/19at 12:58; Start 02/04/19 at 12:15; Stop 02/04/19 at 12:16; Status DC Piperacillin Sod/ Tazobactam Sod (Zosyn Per Pharmacy) 1 each PRN DAILY PRN MC SEE COMMENTS; Start 02/04/19 at 13:15 Vancomycin HCl (Vanco Per Pharmacy) 1 each PRN DAILY PRN MC SEE COMMENTS Last administered on 02/04/19at 15:48; Start 02/04/19 at 13:15; Stop 02/05/19 at 08:47; Status DC Piperacillin Sod/ Tazobactam Sod 3.375 gm/Sodium Chloride 50 ml @ 100 mls/hr Q6HRS IV Last administered on 02/08/19at 13:11; Start 02/04/19 at 13:30 Vancomycin HCl 2 gm/Sodium Chloride 500 ml @ 250 mls/hr 1X ONCE IV Last administered on 7/3/19at 15:34; Start 02/04/19 at 14:00; Stop 02/05/19 at 08:39; Status DC Lactobacillus Rhamnosus (Culturelle) 1 cap BID PO Last administered on 02/08/19 09:55; Start 02/04/19 at 21:00 Vancomycin HCl 1.25 gm/Sodium Chloride 250 ml @ 167 mls/hr Q12H IV Last administered on 02/05/19 04:25; Start 02/05/19 at 04:00; Stop 02/05/19 at 08:39; Status DC Vancomycin HCl (Vancomycin Trough Level) 1 each 1X ONCE MC ; Start 02/06/19 at 03:30; Stop 02/06/19 at 03:30; Status DC Amlodipine Besylate (Norvasc) 7.5 mg DAILY PO Last administered on 02/08/19 09:57; Start 02/05/19 at 11:00 Aspirin (Ecotrin) 81 mg DAILY PO Last administered on 02/08/19 09:55; Start 02/05/19 at 11:00 Cetirizine HCl (ZyrTEC) 10 mg PRN DAILY PRN PO ALLERGIES; Start 02/05/19 at 10:00 Cyclobenzaprine HCl (Flexeril) 10 mg PRN TID PRN PO MUSCLE SPASTICITY; Start 02/05/19 at 10:00 Furosemide (Lasix) 40 mg DAILY PO Last administered on 02/08/19 09:56; Start 02/05/19 at 11:00 Gabapentin (Neurontin) 300 mg TID PO Last administered on 02/08/19 13:13; S tart 02/05/19 at 11:00 Levetiracetam (Keppra) 500 mg BID PO Last administered on 02/08/19 09:54; Start 02/05/19 at 11:00 Lisinopril (Prinivil) 40 mg DAILY PO Last administered on 02/08/19 09:56; Start 02/05/19 at 11:00 Tamsulosin HCl (Flomax) 0.4 mg DAILY PO Last administered on 02/08/19 09:55; Start 02/05/19 at 11:00 Calcium/Vitamin D (Oscal D 500mg/ 200uts) 1 tab BIDWMEALS PO Last administered on 02/08/19 09:56; Start 02/05/19 at 11:00 Divalproex Sodium (Depakote) 500 mg BID PO Last administered on 02/08/19 09:56; Start 02/05/19 at 11:00 Non-Formulary Medication (Fingolimod Hcl (Gilenya)) 0.5 mg DAILY PO ; Start 02/06/19 at 09:00; Stop 02/06/19 at 13:48; Status DC Flecainide Acetate (Tambocor) 100 mg Q12HR PO Last administered on 02/08/19 09:56; Start 02/05/19 at 11:00 Fluticasone Propionate (Flonase) 2 spray DAILY NS ; Start 02/05/19 at 11:00; Status Cancel Ibuprofen (Motrin) 600 mg PRN Q8HRS PRN PO INFLAMMATION Last administered on 02/08/19 10:02; Start 02/05/19 at 10:30 Pantoprazole Sodium (Protonix) 40 mg DAILYAC PO Last administered on 02/08/19 07:12; Start 02/05/19 at 11:30 Oxycodone HCl (Roxicodone) 5 mg PRN Q4HRS PRN PO MODERATE TO SEVERE PAIN Last administered on 02/07/19 16:50; Start 02/05/19 at 10:45 Non-Formulary Medication (Polyethylene Glycol 3350 (Miralax)) 1 pkt DAILY PO ; Start 02/05/19 at 11:00; Stop 02/05/19 at 11:34; Status DC Risperidone (RisperDAL) 0.25 mg DAILY08 PO Last administered on 02/08/19 09:55; Start 02/05/19 at 10:45 Acetaminophen/ Aspirin/Caffeine (Excedrin Migraine) 1 tab PRN Q6HRS PRN PO MIGRAINE HEADACHE; Start 02/05/19 at 10:00 Clonidine HCl (Catapres Tts-3) 1 patch Tu TD ; Start 02/10/19 at 09:00 Metoprolol Tartrate (Lopressor) 50 mg BID PO Last administered on 02/08/19 09:55; Start 02/05/19 at 11:00 Polyethylene Glycol (miraLAX PACKET) 17 gm DAILY PO ; Start 02/05/19 at 12:00; Stop 02/05/19 at 12:00; Status DC Polyethylene Glycol (miraLAX PACKET) 17 gm DAILY PO Last administered on 02/07/19at 09:44; Start 02/06/19 at 09:00 Fluticasone Propionate (Flonase) 2 spray DAILY NS Last administered on 02/08/19at 09:54; Start 02/05/19 at 12:15 Haloperidol Lactate (Haldol Inj) 2 mg 1X ONCE IVP Last administered on 02/08/19at 09:57; Start 02/08/19 at 09:30; Stop 02/08/19 at 09:31; Status DC Active Scripts Active Culturelle (Lactobacillus Rhamnosus Gg) 1 Each Cap.sprink 1 Cap PO BID Cipro (Ciprofloxacin Hcl) 250 Mg Tablet 1 Tab PO BID Keppra (Levetiracetam) 500 Mg Tablet 1 Tab PO BID Risperdal (Risperidone) 0.25 Mg Tablet 0.25 Mg PO DAILY08 Reported Tamsulosin Hcl 0.4 Mg Cap.er.24h 1 Cap PO DAILY Miralax (Polyethylene Glycol 3350) 17 Gm Powd.pack 1 Pkt PO DAILY Oxycodone Hcl 5 Mg Capsule 5 Mg PO PRN Q4HRS PRN Omeprazole 20 Mg Tablet.dr 1 Tab PO DAILY Metoprolol Tartrate 50 Mg Tablet 1 Tab PO BID Lisinopril 40 Mg Tablet 1 Tab PO DAILY Ibuprofen 600 Mg Tablet 600 Mg PO PRN Q8HRS PRN Gabapentin (Gabapentin) 300 Mg Capsule 300 Mg PO TID Furosemide 40 Mg Tablet 1 Tab PO DAILY Flonase Allergy Relief (Fluticasone Propionate) 9.9 Ml [place].susp 2 Sprays NS DAILY Flecainide Acetate 100 Mg Tablet 1 Tab PO BID Gilenya (Fingolimod Hcl) 0.5 Mg Capsule 0.5 Mg PO DAILY Divalproex Sodium 500 Mg Tablet.dr 1 Tab PO BID Cyclobenzaprine Hcl 10 Mg Tablet 1 Tab PO TID PRN Clonidine Tts-3 (Clonidine) 1 Each Patch.tdwk 1 Patch TD WEEKLY Cetirizine Hcl 10 Mg Tablet 1 Tab PO PRN DAILY PRN Caltrate+D3 Plus Mineral Minis (Ca Carb/D3/Mag Ox/Instructional Support Assistant/Carlos/Zn) 1 Each Tablet 1 Each PO BID Rtvylk-Uqvbibia-Vexp 50-325-40 (Butalb/Acetaminophen/Caffeine) 1 Each Tablet 1 Each PO PRN Q4HRS PRN Aspir 81 (Aspirin) 81 Mg Tablet.dr 1 Tab PO DAILY Amlodipine Besylate 5 Mg Tablet 7.5 Mg PO DAILY Vitals/I & O Vital Sign - Last 24 Hours 02/07/19 02/07/19 02/07/19 02/07/19 16:50 17:50 19:00 21:06 Temp 98.4 98.4 Pulse 71 71 Resp 18 18 18 B/P (MAP) 124/87 (99) 124/87 Pulse Ox 96 96 97 O2 Delivery Room Air Room Air Room Air 02/07/19 02/07/19 02/08/19 02/08/19 21:06 22:38 07:59 08:30 Temp 98.1 97.6 98.1 97.6 Pulse 71 70 61 Resp 18 17 B/P (MAP) 124/87 130/97 (108) 133/91 (105) Pulse Ox 98 98 O2 Delivery Room Air Room Air Room Air 02/08/19 02/08/19 02/08/19 02/08/19 09:55 09:56 09:56 09:57 Pulse 61 61 61 61 B/P (MAP) 133/91 133/91 133/91 133/91 02/08/19 11:59 Temp 97.7 97.7 Pulse 66 Resp 20 B/P (MAP) 125/58 (80) Pulse Ox 96 O2 Delivery Room Air Intake and Output 02/07/19 02/07/19 02/08/19 14:59 22:59 06:59 Intake Total 1110 ml 50 ml Output Total 800 ml Balance 310 ml 50 ml AFIA CUEVAS MD Feb 08, 2019 15:28
--- NOTE | 2019-02-08 15:35 | PDOC ---
PROGRESS NOTES Chief Complaint Chief Complaint LATE ENTRY, tried to DC on 02/07, ID consult wanted to stay for blood cx was indeterminate UTI with sepsis and metabolic encephalopathy. G neg ruchi bacteremia MS HTN Expressive aphasia Old stroke History of Present Illness History of Present Illness 02/08/ still waiting on blood culture agitated today, yelling at nurses, threw some of his breakfast on the floor, haldol 2mg given and he was then very pleasant 02/07. he felt well, tired to be be DC 7�5�2018 no event Vitals Vitals Vital Signs Date Time Temp Pulse Resp B/P (MAP) Pulse Ox O2 Delivery O2 Flow Rate FiO2 02/08/19 11:59 97.7 66 20 125/58 (80) 96 Room Air 97.7 Physical Exam Physical Exam GENERAL: Propped up in bed, upset, HEART: S1, S2 regular. 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 touch ACETYLENE TORCH BURNER: Alert, expressive asphasia - less sensible today General: Alert, mild distress, Other (agitated, angry, ) Heart: Regular rate, Normal S1 Lungs: Clear Abdomen: Normal bowel sounds Extremities: No clubbing, No cyanosis Skin: No rashes Labs LABS Laboratory Tests Test 02/08/19 10:52 White Blood Count 4.1 x10^3/uL (4.0-11.0) Red Blood Count 3.50 x10^6/uL (4.30-5.70) Hemoglobin 11.6 g/dL (13.0-17.5) Hematocrit 33.3 % (39.0-53.0) Mean Corpuscular Volume 95 fL (79-100) Mean Corpuscular Hemoglobin 33 pg (25-35) Mean Corpuscular Hemoglobin Concent 35 g/dL (31-37) Red Cell Distribution Width 14.5 % (11.5-14.5) Platelet Count 383 x10^3/uL (140-400) Neutrophils (%) (Auto) 73 % (31-73) Lymphocytes (%) (Auto) 16 % (24-48) Monocytes (%) (Auto) 10 % (0-9) Eosinophils (%) (Auto) 1 % (0-3) Basophils (%) (Auto) 0 % (0-3) Neutrophils # (Auto) 3.0 x10^3uL (1.8-7.7) Lymphocytes # (Auto) 0.7 x10^3/uL (1.0-4.8) Monocytes # (Auto) 0.4 x10^3/uL (0.0-1.1) Eosinophils # (Auto) 0.0 x10^3/uL (0.0-0.7) Basophils # (Auto) 0.0 x10^3/uL (0.0-0.2) Sodium Level 144 mmol/L (136-145) Potassium Level 3.6 mmol/L (3.5-5.1) Chloride Level 105 mmol/L (98-107) Carbon Dioxide Level 28 mmol/L (21-32) Anion Gap 11 (6-14) Blood Urea Nitrogen 16 mg/dL (8-26) Creatinine 1.3 mg/dL (0.7-1.3) Estimated GFR (Cockcroft-Gault) 68.4 Glucose Level 90 mg/dL (70-99) Calcium Level 9.5 mg/dL (8.5-10.1) Assessment and Plan Assessmemt and Plan Problems Medical Problems: (1) Encephalopathy Status: Acute (2) Fever Status: Acute (3) Pneumonia Status: Acute (4) Sepsis secondary to UTI Status: Acute (5) UTI (urinary tract infection) Status: Acute Comment Review of Relevant I have reviewed the following items davion (where applicable) has been applied. Labs Laboratory Tests Test 02/07/19 03:45 02/08/19 10:52 White Blood Count 3.5 x10^3/uL (4.0-11.0) 4.1 x10^3/uL (4.0-11.0) Red Blood Count 3.46 x10^6/uL (4.30-5.70) 3.50 x10^6/uL (4.30-5.70) Hemoglobin 11.0 g/dL (13.0-17.5) 11.6 g/dL (13.0-17.5) Hematocrit 33.0 % (39.0-53.0) 33.3 % (39.0-53.0) Mean Corpuscular Volume 95 fL (79-100) 95 fL (79-100) Mean Corpuscular Hemoglobin 32 pg (25-35) 33 pg (25-35) Mean Corpuscular Hemoglobin Concent 33 g/dL (31-37) 35 g/dL (31-37) Red Cell Distribution Width 14.7 % (11.5-14.5) 14.5 % (11.5-14.5) Platelet Count 308 x10^3/uL (140-400) 383 x10^3/uL (140-400) Neutrophils (%) (Auto) 63 % (31-73) 73 % (31-73) Lymphocytes (%) (Auto) 21 % (24-48) 16 % (24-48) Monocytes (%) (Auto) 14 % (0-9) 10 % (0-9) Eosinophils (%) (Auto) 1 % (0-3) 1 % (0-3) Basophils (%) (Auto) 0 % (0-3) 0 % (0-3) Neutrophils # (Auto) 2.2 x10^3uL (1.8-7.7) 3.0 x10^3uL (1.8-7.7) Lymphocytes # (Auto) 0.8 x10^3/uL (1.0-4.8) 0.7 x10^3/uL (1.0-4.8) Monocytes # (Auto) 0.5 x10^3/uL (0.0-1.1) 0.4 x10^3/uL (0.0-1.1) Eosinophils # (Auto) 0.0 x10^3/uL (0.0-0.7) 0.0 x10^3/uL (0.0-0.7) Basophils # (Auto) 0.0 x10^3/uL (0.0-0.2) 0.0 x10^3/uL (0.0-0.2) Sodium Level 143 mmol/L (136-145) 144 mmol/L (136-145) Potassium Level 3.5 mmol/L (3.5-5.1) 3.6 mmol/L (3.5-5.1) Chloride Level 104 mmol/L (98-107) 105 mmol/L (98-107) Carbon Dioxide Level 28 mmol/L (21-32) 28 mmol/L (21-32) Anion Gap 11 (6-14) 11 (6-14) Blood Urea Nitrogen 13 mg/dL (8-26) 16 mg/dL (8-26) Creatinine 1.3 mg/dL (0.7-1.3) 1.3 mg/dL (0.7-1.3) Estimated GFR (Cockcroft-Gault) 68.4 68.4 Glucose Level 90 mg/dL (70-99) 90 mg/dL (70-99) Calcium Level 9.0 mg/dL (8.5-10.1) 9.5 mg/dL (8.5-10.1) Laboratory Tests Test 02/08/19 10:52 White Blood Count 4.1 x10^3/uL (4.0-11.0) Red Blood Count 3.50 x10^6/uL (4.30-5.70) Hemoglobin 11.6 g/dL (13.0-17.5) Hematocrit 33.3 % (39.0-53.0) Mean Corpuscular Volume 95 fL (79-100) Mean Corpuscular Hemoglobin 33 pg (25-35) Mean Corpuscular Hemoglobin Concent 35 g/dL (31-37) Red Cell Distribution Width 14.5 % (11.5-14.5) Platelet Count 383 x10^3/uL (140-400) Neutrophils (%) (Auto) 73 % (31-73) Lymphocytes (%) (Auto) 16 % (24-48) Monocytes (%) (Auto) 10 % (0-9) Eosinophils (%) (Auto) 1 % (0-3) Basophils (%) (Auto) 0 % (0-3) Neutrophils # (Auto) 3.0 x10^3uL (1.8-7.7) Lymphocytes # (Auto) 0.7 x10^3/uL (1.0-4.8) Monocytes # (Auto) 0.4 x10^3/uL (0.0-1.1) Eosinophils # (Auto) 0.0 x10^3/uL (0.0-0.7) Basophils # (Auto) 0.0 x10^3/uL (0.0-0.2) Sodium Level 144 mmol/L (136-145) Potassium Level 3.6 mmol/L (3.5-5.1) Chloride Level 105 mmol/L (98-107) Carbon Dioxide Level 28 mmol/L (21-32) Anion Gap 11 (6-14) Blood Urea Nitrogen 16 mg/dL (8-26) Creatinine 1.3 mg/dL (0.7-1.3) Estimated GFR (Cockcroft-Gault) 68.4 Glucose Level 90 mg/dL (70-99) Calcium Level 9.5 mg/dL (8.5-10.1) Microbiology 02/04/19 Blood Culture - Preliminary, Resulted 02/04/19 Blood Culture Result 1 (JAYDA) - Preliminary, Resulted 02/04/19 Urine Culture - Final, Complete 02/04/19 Urine Culture Result 1 (JAYDA) - Final, Complete 02/04/19 Antimicrobic Susceptibility - Final, Complete Medications Current Medications Acetaminophen (Tylenol) 1,000 mg 1X ONCE PO ; Start 02/04/19 at 12:15; Stop 02/04/19 at 12:16; Status DC Sodium Chloride 1,000 ml @ 1,000 mls/hr Q1H IV Last administered on 02/04/19at 12:56; Start 02/04/19 at 12:07; Stop 02/04/19 at 13:06; Status DC Ceftriaxone Sodium (Rocephin) 1 gm 1X ONCE IVP Last administered on 02/04/19at 12:58; Start 02/04/19 at 12:15; Stop 02/04/19 at 12:16; Status DC Piperacillin Sod/ Tazobactam Sod (Zosyn Per Pharmacy) 1 each PRN DAILY PRN MC SEE COMMENTS; Start 02/04/19 at 13:15 Vancomycin HCl (Vanco Per Pharmacy) 1 each PRN DAILY PRN MC SEE COMMENTS Last administered on 02/04/19at 15:48; Start 02/04/19 at 13:15; Stop 02/05/19 at 08:47; Status DC Piperacillin Sod/ Tazobactam Sod 3.375 gm/Sodium Chloride 50 ml @ 100 mls/hr Q6HRS IV Last administered on 02/08/19at 13:11; Start 02/04/19 at 13:30 Vancomycin HCl 2 gm/Sodium Chloride 500 ml @ 250 mls/hr 1X ONCE IV Last administered on 02/04/19at 15:34; Start 02/04/19 at 14:00; Stop 02/05/19 at 08:39; Status DC Lactobacillus Rhamnosus (Culturelle) 1 cap BID PO Last administered on 02/08/19 09:55; Start 02/04/19 at 21:00 Vancomycin HCl 1.25 gm/Sodium Chloride 250 ml @ 167 mls/hr Q12H IV Last administered on 02/05/19 04:25; Start 02/05/19 at 04:00; Stop 02/05/19 at 08:39; Status DC Vancomycin HCl (Vancomycin Trough Level) 1 each 1X ONCE MC ; Start 02/06/19 at 03:30; Stop 02/06/19 at 03:30; Status DC Amlodipine Besylate (Norvasc) 7.5 mg DAILY PO Last administered on 02/08/19 09:57; Start 02/05/19 at 11:00 Aspirin (Ecotrin) 81 mg DAILY PO Last administered on 02/08/19 09:55; Start 02/05/19 at 11:00 Cetirizine HCl (ZyrTEC) 10 mg PRN DAILY PRN PO ALLERGIES; Start 02/05/19 at 10:00 Cyclobenzaprine HCl (Flexeril) 10 mg PRN TID PRN PO MUSCLE SPASTICITY; Start 02/05/19 at 10:00 Furosemide (Lasix) 40 mg DAILY PO Last administered on 02/08/19 09:56; Start 02/05/19 at 11:00 Gabapentin (Neurontin) 300 mg TID PO Last administered on 02/08/19 13:13; Start 02/05/19 at 11:00 Levetiracetam (Keppra) 500 mg BID PO Last administered on 02/08/19 09:54; Start 02/05/19 at 11:00 Lisinopril (Prinivil) 40 mg DAILY PO Last administered on 02/08/19 09:56; Start 02/05/19 at 11:00 Tamsulosin HCl (Flomax) 0.4 mg DAILY PO Last administered on 02/08/19 09:55; Start 02/05/19 at 11:00 Calcium/Vitamin D (Oscal D 500mg/ 200uts) 1 tab BIDWMEALS PO Last administered on 02/08/19 09:56; Start 02/05/19 at 11:00 Divalproex Sodium (Depakote) 500 mg BID PO Last administered on 02/08/19 09:56; Start 02/05/19 at 11:00 Non-Formulary Medication (Fingolimod Hcl (Gilenya)) 0.5 mg DAILY PO ; Start 02/06/19 at 09:00; Stop 02/06/19 at 13:48; Status DC Flecainide Acetate (Tambocor) 100 mg Q12HR PO Last administered on 02/08/19 09:56; Start 02/05/19 at 11:00 Fluticasone Propionate (Flonase) 2 spray DAILY NS ; Start 02/05/19 at 11:00; S tatus Cancel Ibuprofen (Motrin) 600 mg PRN Q8HRS PRN PO INFLAMMATION Last administered on 02/08/19 10:02; Start 02/05/19 at 10:30 Pantoprazole Sodium (Protonix) 40 mg DAILYAC PO Last administered on 02/08/19 07:12; Start 02/05/19 at 11:30 Oxycodone HCl (Roxicodone) 5 mg PRN Q4HRS PRN PO MODERATE TO SEVERE PAIN Last administered on 02/07/19at 16:50; Start 02/05/19 at 10:45 Non-Formulary Medication (Polyethylene Glycol 3350 (Miralax)) 1 pkt DAILY PO ; Start 02/05/19 at 11:00; Stop 02/05/19 at 11:34; Status DC Risperidone (RisperDAL) 0.25 mg DAILY08 PO Last administered on 02/08/19 09:55; Start 02/05/19 at 10:45 Acetaminophen/ Aspirin/Caffeine (Excedrin Migraine) 1 tab PRN Q6HRS PRN PO MIGRAINE HEADACHE; Start 02/05/19 at 10:00 Clonidine HCl (Catapres Tts-3) 1 patch Tu TD ; Start 02/10/19 at 09:00 Metoprolol Tartrate (Lopressor) 50 mg BID PO Last administered on 02/08/19 09:55; Start 02/05/19 at 11:00 Polyethylene Glycol (miraLAX PACKET) 17 gm DAILY PO ; Start 02/05/19 at 12:00; Stop 02/05/19 at 12:00; Status DC Polyethylene Glycol (miraLAX PACKET) 17 gm DAILY PO Last administered on 02/07/19at 09:44; Start 02/06/19 at 09:00 Fluticasone Propionate (Flonase) 2 spray DAILY NS Last administered on 02/08/19at 09:54; Start 02/05/19 at 12:15 Haloperidol Lactate (Haldol Inj) 2 mg 1X ONCE IVP Last administered on 02/08/19at 09:57; Start 02/08/19 at 09:30; Stop 02/08/19 at 09:31; Status DC Active Scripts Active Culturelle (Lactobacillus Rhamnosus Gg) 1 Each Cap.sprink 1 Cap PO BID Cipro (Ciprofloxacin Hcl) 250 Mg Tablet 1 Tab PO BID Keppra (Levetiracetam) 500 Mg Tablet 1 Tab PO BID Risperdal (Risperidone) 0.25 Mg Tablet 0.25 Mg PO DAILY08 Reported Tamsulosin Hcl 0.4 Mg Cap.er.24h 1 Cap PO DAILY Miralax (Polyethylene Glycol 3350) 17 Gm Powd.pack 1 Pkt PO DAILY Oxycodone Hcl 5 Mg Capsule 5 Mg PO PRN Q4HRS PRN Omeprazole 20 Mg Tablet.dr 1 Tab PO DAILY Metoprolol Tartrate 50 Mg Tablet 1 Tab PO BID Lisinopril 40 Mg Tablet 1 Tab PO DAILY Ibuprofen 600 Mg Tablet 600 Mg PO PRN Q8HRS PRN Gabapentin (Gabapentin) 300 Mg Capsule 300 Mg PO TID Furosemide 40 Mg Tablet 1 Tab PO DAILY Flonase Allergy Relief (Fluticasone Propionate) 9.9 Ml [place].susp 2 Sprays NS DAILY Flecainide Acetate 100 Mg Tablet 1 Tab PO BID Gilenya (Fingolimod Hcl) 0.5 Mg Capsule 0.5 Mg PO DAILY Divalproex Sodium 500 Mg Tablet.dr 1 Tab PO BID Cyclobenzaprine Hcl 10 Mg Tablet 1 Tab PO TID PRN Clonidine Tts-3 (Clonidine) 1 Each Patch.tdwk 1 Patch TD WEEKLY Cetirizine Hcl 10 Mg Tablet 1 Tab PO PRN DAILY PRN Caltrate+D3 Plus Mineral Minis (Ca Carb/D3/Mag Ox/Machine Mover/Carlos/Zn) 1 Each Tablet 1 Each PO BID Myrpnu-Nwgtoxux-Qryl 50-325-40 (Butalb/Acetaminophen/Caffeine) 1 Each Tablet 1 Each PO PRN Q4HRS PRN Aspir 81 (Aspirin) 81 Mg Tablet.dr 1 Tab PO DAILY Amlodipine Besylate 5 Mg Tablet 7.5 Mg PO DAILY Vitals/I & O Vital Sign - Last 24 Hours 02/07/19 02/07/19 02/07/19 02/07/19 16:50 17:50 19:00 21:06 Temp 98.4 98.4 Pulse 71 71 Resp 18 18 18 B/P (MAP) 124/87 (99) 124/87 Pulse Ox 96 96 97 O2 Delivery Room Air Room Air Room Air 02/07/19 02/07/19 02/08/19 02/08/19 21:06 22:38 07:59 08:30 Temp 98.1 97.6 98.1 97.6 Pulse 71 70 61 Resp 18 17 B/P (MAP) 124/87 130/97 (108) 133/91 (105) Pulse Ox 98 98 O2 Delivery Room Air Room Air Room Air 02/08/19 02/08/19 02/08/19 02/08/19 09:55 09:56 09:56 09:57 Pulse 61 61 61 61 B/P (MAP) 133/91 133/91 133/91 133/91 02/08/19 11:59 Temp 97.7 97.7 Pulse 66 Resp 20 B/P (MAP) 125/58 (80) Pulse Ox 96 O2 Delivery Room Air Intake and Output 02/07/19 02/07/19 02/08/19 14:59 22:59 06:59 Intake Total 1110 ml 50 ml Output Total 800 ml Balance 310 ml 50 ml AFIA CUEVAS MD Feb 08, 2019 15:35
[2019-02-08 19:20] VITALS: BP 102/78
[2019-02-08 22:37] VITALS: BP 111/85
[2019-02-08] MEDS: oxyCODONE IR 5 MG TABLET PO PRN (22:37)
[2019-02-09] MEDS: PIPERACILLIN/TAZOBACTAM 3.375 GM in IV NORMAL SALINE 50ML 50 ML IV SCH ×4 (00:10→18:22)
[2019-02-09 03:32] VITALS: BP 118/71
[2019-02-09 04:02] LABS: BASO % 0 % (0-3); EOS % 1 % (0-3); HEMATOCRIT 31.5 % (39.0-53.0); HEMOGLOBIN 10.4 g/dL (13.0-17.5); LYMPH % 30 % (24-48); MEAN CORPUSCULAR HEMOGLOBIN 32 pg (25-35); MEAN CORPUSCULAR HGB CONC 33 g/dL (31-37); MEAN CORPUSCULAR VOLUME 96 fL (79-100); MONO # 0.4 x10^3/uL (0.0-1.1); MONO % 13 % (0-9); NEUT # 1.8 x10^3uL (1.8-7.7); NEUT % 56 % (31-73); PLATELET COUNT 376 x10^3/uL (140-400); RED CELL DISTRIBUTION WIDTH 14.7 % (11.5-14.5); WHITE BLOOD COUNT 3.2 x10^3/uL (4.0-11.0)
[2019-02-09 04:18] LABS: CALCIUM 8.7 mg/dL (8.5-10.1); CREATININE 1.4 mg/dL (0.7-1.3); GFR 62.8; POTASSIUM 3.7 mmol/L (3.5-5.1)
[2019-02-09 07:00] VITALS: BP 113/80
[2019-02-09] MEDS: FLUTICASONE 50MCG/NASAL SPRAY 16GM BOTTLE. NS SCH (08:56)
[2019-02-09] MEDS: amLODIPine BESYLATE 5 MG TABLET PO SCH (08:57)
[2019-02-09] MEDS: FLECAINIDE ACETATE 50 MG TABLET. PO SCH ×2 (08:57→20:36)
[2019-02-09] MEDS: GABAPENTIN 300 MG CAPSULE. PO SCH ×3 (08:57→20:37)
[2019-02-09] MEDS: ASPIRIN ENTERIC COATED 81 MG TABLET.DR. PO SCH (08:57)
[2019-02-09] MEDS: TAMSULOSIN 0.4 MG CAP.ER.24H. PO SCH (08:57)
[2019-02-09] MEDS: LISINOPRIL 20 MG TABLET PO SCH (08:58)
[2019-02-09] MEDS: DIVALPROEX DELAYED RELEASE 500 MG TABLET.DR. PO SCH ×2 (08:58→20:35)
[2019-02-09] MEDS: PANTOPRAZOLE 40 MG TABLET.DR. PO SCH (08:58)
[2019-02-09] MEDS: LACTOBACILLUS RHAMNOSUS GG 1 CAPSULE. PO SCH ×2 (08:58→20:37)
[2019-02-09] MEDS: CALCIUM CARB/VIT D3 500/200 TABLET. PO SCH ×2 (08:59→18:21)
[2019-02-09] MEDS: risperiDONE 0.25 MG TABLET. PO SCH (08:59)
[2019-02-09] MEDS: POLYETHYLENE GLYCOL 3350 17 GM PACKET. PO SCH (08:59)
[2019-02-09] MEDS: FUROSEMIDE 40 MG TABLET. PO SCH (08:59)
[2019-02-09] MEDS: METOPROLOL TART IMMED RELEASE 50 MG TABLET. PO SCH ×2 (08:59→20:37)
[2019-02-09] MEDS: levETIRAcetam 500 MG TABLET PO SCH ×2 (09:00→20:38)
--- NOTE | 2019-02-09 10:13 | PDOC3 ---
Discharge Summary Visit Information Date of Admission: Feb 04, 2019 Date of Discharge: Feb 09, 2019 Final Diagnosis UTI with sepsis and metabolic encephalopathy. G neg ruchi bacteremia MS HTN Expressive aphasia Old stroke, with some vascular dementia, Problems Medical Problems: (1) Encephalopathy Status: Acute (2) Fever Status: Acute (3) Pneumonia Status: Acute (4) Sepsis secondary to UTI Status: Acute (5) UTI (urinary tract infection) Status: Acute Brief Hospital Course Allergies Allergies Coded Allergies Type Severity Reaction Last Updated Verified No Known Drug Allergies 09/03/15 No Vital Signs Vital Signs Date Time Temp Pulse Resp B/P (MAP) Pulse Ox O2 Delivery O2 Flow Rate FiO2 02/09/19 08:59 56 113/80 02/09/19 07:00 97.5 18 96 Room Air 97.5 Lab Results Laboratory Tests Test 02/08/19 10:52 02/09/19 03:20 02/09/19 03:25 White Blood Count 4.1 x10^3/uL (4.0-11.0) 3.2 x10^3/uL (4.0-11.0) Red Blood Count 3.50 x10^6/uL (4.30-5.70) 3.30 x10^6/uL (4.30-5.70) Hemoglobin 11.6 g/dL (13.0-17.5) 10.4 g/dL (13.0-17.5) Hematocrit 33.3 % (39.0-53.0) 31.5 % (39.0-53.0) Mean Corpuscular Volume 95 fL (79-100) 96 fL (79-100) Mean Corpuscular Hemoglobin 33 pg (25-35) 32 pg (25-35) Mean Corpuscular Hemoglobin Concent 35 g/dL (31-37) 33 g/dL (31-37) Red Cell Distribution Width 14.5 % (11.5-14.5) 14.7 % (11.5-14.5) Platelet Count 383 x10^3/uL (140-400) 376 x10^3/uL (140-400) Neutrophils (%) (Auto) 73 % (31-73) 56 % (31-73) Lymphocytes (%) (Auto) 16 % (24-48) 30 % (24-48) Monocytes (%) (Auto) 10 % (0-9) 13 % (0-9) Eosinophils (%) (Auto) 1 % (0-3) 1 % (0-3) Basophils (%) (Auto) 0 % (0-3) 0 % (0-3) Neutrophils # (Auto) 3.0 x10^3uL (1.8-7.7) 1.8 x10^3uL (1.8-7.7) Lymphocytes # (Auto) 0.7 x10^3/uL (1.0-4.8) 1.0 x10^3/uL (1.0-4.8) Monocytes # (Auto) 0.4 x10^3/uL (0.0-1.1) 0.4 x10^3/uL (0.0-1.1) Eosinophils # (Auto) 0.0 x10^3/uL (0.0-0.7) 0.0 x10^3/uL (0.0-0.7) Basophils # (Auto) 0.0 x10^3/uL (0.0-0.2) 0.0 x10^3/uL (0.0-0.2) Sodium Level 144 mmol/L (136-145) 146 mmol/L (136-145) Potassium Level 3.6 mmol/L (3.5-5.1) 3.7 mmol/L (3.5-5.1) Chloride Level 105 mmol/L (98-107) 107 mmol/L (98-107) Carbon Dioxide Level 28 mmol/L (21-32) 30 mmol/L (21-32) Anion Gap 11 (6-14) 9 (6-14) Blood Urea Nitrogen 16 mg/dL (8-26) 17 mg/dL (8-26) Creatinine 1.3 mg/dL (0.7-1.3) 1.4 mg/dL (0.7-1.3) Estimated GFR (Cockcroft-Gault) 68.4 62.8 Glucose Level 90 mg/dL (70-99) 110 mg/dL (70-99) Calcium Level 9.5 mg/dL (8.5-10.1) 8.7 mg/dL (8.5-10.1) Laboratory Tests Test 02/08/19 10:52 02/09/19 03:20 02/09/19 03:25 White Blood Count 4.1 x10^3/uL (4.0-11.0) 3.2 x10^3/uL (4.0-11.0) Red Blood Count 3.50 x10^6/uL (4.30-5.70) 3.30 x10^6/uL (4.30-5.70) Hemoglobin 11.6 g/dL (13.0-17.5) 10.4 g/dL (13.0-17.5) Hematocrit 33.3 % (39.0-53.0) 31.5 % (39.0-53.0) Mean Corpuscular Volume 95 fL (79-100) 96 fL (79-100) Mean Corpuscular Hemoglobin 33 pg (25-35) 32 pg (25-35) Mean Corpuscular Hemoglobin Concent 35 g/dL (31-37) 33 g/dL (31-37) Red Cell Distribution Width 14.5 % (11.5-14.5) 14.7 % (11.5-14.5) Platelet Count 383 x10^3/uL (140-400) 376 x10^3/uL (140-400) Neutrophils (%) (Auto) 73 % (31-73) 56 % (31-73) Lymphocytes (%) (Auto) 16 % (24-48) 30 % (24-48) Monocytes (%) (Auto) 10 % (0-9) 13 % (0-9) Eosinophils (%) (Auto) 1 % (0-3) 1 % (0-3) Basophils (%) (Auto) 0 % (0-3) 0 % (0-3) Neutrophils # (Auto) 3.0 x10^3uL (1.8-7.7) 1.8 x10^3uL (1.8-7.7) Lymphocytes # (Auto) 0.7 x10^3/uL (1.0-4.8) 1.0 x10^3/uL (1.0-4.8) Monocytes # (Auto) 0.4 x10^3/uL (0.0-1.1) 0.4 x10^3/uL (0.0-1.1) Eosinophils # (Auto) 0.0 x10^3/uL (0.0-0.7) 0.0 x10^3/uL (0.0-0.7) Basophils # (Auto) 0.0 x10^3/uL (0.0-0.2) 0.0 x10^3/uL (0.0-0.2) Sodium Level 144 mmol/L (136-145) 146 mmol/L (136-145) Potassium Level 3.6 mmol/L (3.5-5.1) 3.7 mmol/L (3.5-5.1) Chloride Level 105 mmol/L (98-107) 107 mmol/L (98-107) Carbon Dioxide Level 28 mmol/L (21-32) 30 mmol/L (21-32) Anion Gap 11 (6-14) 9 (6-14) Blood Urea Nitrogen 16 mg/dL (8-26) 17 mg/dL (8-26) Creatinine 1.3 mg/dL (0.7-1.3) 1.4 mg/dL (0.7-1.3) Estimated GFR (Cockcroft-Gault) 68.4 62.8 Glucose Level 90 mg/dL (70-99) 110 mg/dL (70-99) Calcium Level 9.5 mg/dL (8.5-10.1) 8.7 mg/dL (8.5-10.1) Brief Hospital Course Mr. Mendez is a 58 old admit here from his [facility] living from debilty weakness, cog impairment post CVA. admit with worse confusion, + UTI blood cx , gm neg rods, DC held from 02/07 for final blood cx, still not back 02/09, will cont doxy, he looks better, f/u cx ID consult was following better at DC, cont abx course Discharge Information Condition at Discharge: Improved Follow Up: Weeks Disposition/Orders: D/C to Another Facility Scheduled Amlodipine Besylate (Amlodipine Besylate) 5 Mg Tablet, 7.5 MG PO DAILY, (Reported) Entered as Reported by: Zoë Cano on 09/05/15 1058 Last Action: Continued on 02/05/19 0952 by EMMA CARDONA Aspirin (Aspir 81) 81 Mg Tablet., 1 TAB PO DAILY, #30 Ref 5 (Reported) Entered as Reported by: Zoë Cano on 09/05/151057 Last Action: Continued on 02/05/19951 by EMMA CARDONA Ca Carb/D3/Mag Ox/Chief Pharmacist/Carlos/Zn (Caltrate+D3 Plus Mineral Minis) 1 Each Tablet, 1 EACH PO BID, (Reported) Entered as Reported by: Zoë Cano on 09/05/151057 Last Action: Converted on 02/05/19951 by EMMA CARDONA Ciprofloxacin Hcl (Cipro) 250 Mg Tablet, 1 TAB PO BID for UTI, #14 Prescribed by: AFIA CUEVAS on 02/07/19 1027 Clonidine (Clonidine Tts-3) 1 Each Patch.tdwk, 1 PATCH TD WEEKLY, (Reported) Entered as Reported by: Zoë Cano on 09/05/151057 Last Action: Continued on 02/05/19951 by EMMA CARDONA Divalproex Sodium (Divalproex Sodium) 500 Mg Tablet.dr, 1 TAB PO BID, #60 Ref 1 (Reported) Entered as Reported by: Zoë Cano on 09/05/151057 Last Action: Converted on 02/05/19951 by EMMA CARDONA Fingolimod Hcl (Gilenya) 0.5 Mg Capsule, 0.5 MG PO DAILY, (Reported) Entered as Reported by: Zoë Cano on 09/05/151057 Last Action: Converted on 02/05/19951 by EMMA CARDONA Flecainide Acetate (Flecainide Acetate) 100 Mg Tablet, 1 TAB PO BID, #60 Ref 5 (Reported) Entered as Reported by: Zoë Cano on 09/05/151057 Last Action: Converted on 02/05/19951 by EMMA CARDONA Fluticasone Propionate (Flonase Allergy Relief) 9.9 Ml [place].susp, 2 SPRAYS NS DAILY, (Reported) Entered as Reported by: Zoë Cano on 09/05/151057 Last Action: Converted on 02/05/19951 by EMMA CARDONA Furosemide (Furosemide) 40 Mg Tablet, 1 TAB PO DAILY, #30 Ref 5 (Reported) Entered as Reported by: Zoë Cano on 09/05/151057 Last Action: Continued on 02/05/19951 by EMMA CARDONA Gabapentin (Gabapentin ) 300 Mg Capsule, 300 MG PO TID, (Reported) Entered as Reported by: Zoë Cano on 09/05/151057 Last Action: Continued on 02/05/19951 by EMMA CARDONA Lactobacillus Rhamnosus Gg (Culturelle) 1 Each Cap.sprink, 1 CAP PO BID for gut health on antibiotics, #20 Prescribed by: AFIA CUEVAS on 02/07/19 1027 Levetiracetam (Keppra) 500 Mg Tablet, 1 TAB PO BID for seizure, #60 Ref 1 Prescribed by: AFIA CUEVAS on 01/23/19 1016 Last Action: Continued on 02/05/19951 by EMMA CARDONA Lisinopril (Lisinopril) 40 Mg Tablet, 1 TAB PO DAILY, #30 Ref 5 (Reported) Entered as Reported by: Zoë Cano on 09/05/151057 Last Action: Continued on 02/05/19951 by EMMA CARDONA Metoprolol Tartrate (Metoprolol Tartrate) 50 Mg Tablet, 1 TAB PO BID, #60 Ref 5 (Reported) Entered as Reported by: Zoë Cano on 09/05/151057 Last Action: Continued on 02/05/19951 by EMMA CARDONA Omeprazole (Omeprazole) 20 Mg Tablet.dr, 1 TAB PO DAILY, #90 Ref 1 (Reported) Entered as Reported by: Zoë Cano on 09/05/151057 Last Action: Converted on 02/05/19951 by EMMA CARDONA Polyethylene Glycol 3350 (Miralax) 17 Gm Powd.pack, 1 PKT PO DAILY, (Reported) Entered as Reported by: Zoë Cano on 09/05/151057 Last Action: Converted on 02/05/19951 by EMMA CARDONA Risperidone (Risperdal) 0.25 Mg Tablet, 0.25 MG PO DAILY08 for mood, #30 Prescribed by: AFIA CUEVAS on 01/23/19 1006 Last Action: Converted on 02/05/19951 by EMMA CARDONA Tamsulosin Hcl (Tamsulosin Hcl) 0.4 Mg Cap.er.24h, 1 CAP PO DAILY, #30 Ref 5 (Reported) Entered as Reported by: Zoë Caon on 09/05/151057 Last Action: Continued on 02/05/19951 by EMMA CARDONA Scheduled PRN Butalb/Acetaminophen/Caffeine (Yzcfll-Ipznodnd-Napx 50-325-40) 1 Each Tablet, 1 EACH PO PRN Q4HRS PRN for HEADACHE, (Reported) Entered as Reported by: Zoë Cano on 09/05/151057 Last Action: Converted on 02/05/19951 by EMMA CARDONA Cetirizine Hcl (Cetirizine Hcl) 10 Mg Tablet, 1 TAB PO PRN DAILY PRN for ALLERGIES, #30 Ref 5 (Reported) Entered as Reported by: Zoë Cano on 09/05/151057 Last Action: Continued on 02/05/19951 by EMMA CARDONA Cyclobenzaprine Hcl (Cyclobenzaprine Hcl) 10 Mg Tablet, 1 TAB PO TID PRN for MUSCLE SPASTICITY, #90 (Reported) Entered as Reported by: Zoë Cano on 09/05/151057 Last Action: Continued on 02/05/19951 by EMMA CARDONA Ibuprofen (Ibuprofen) 600 Mg Tablet, 600 MG PO PRN Q8HRS PRN for INFLAMMATION, (Reported) Entered as Reported by: Zoë Cano on 09/05/151057 Last Action: Converted on 02/05/19951 by EMMA CARDONA Oxycodone Hcl (Oxycodone Hcl) 5 Mg Capsule, 5 MG PO PRN Q4HRS PRN for PAIN, Ref 0 (Reported) Entered as Reported by: Zoë Cano on 09/05/151057 Last Action: Converted on 02/05/19951 by EMMA CARDONA Patient Instructions Patient Instructions > 30 min to skilled blood culture is 5 days old, not back this AM AFIA CUEVAS MD Feb 09, 2019 10:13
--- NOTE | 2019-02-09 10:52 | NUR ---
SESAR following pt. SESAR notified by family welfare social work professor wants to take pt back to [facility] upon dc. SESAR also notified by Cynthia at [facility] family had picked up pt's belonging over the weekend. SESAR KABA spoke with pt's mother, Audrey, and informed her pt has a dc order today. Pt's mother stated she does not have a car or pt's apartment sears. Discussed with pt's mother that pt needs more care than [facility] can provide and someone might have to be with him 25/02. Audrey reports pt did not get good experience at [facility] and did not get along with staff. Pt's mother requested if pt can have caregivers in the home and SESAR informed her, family would have to apply for home based services through [facility]. Pt's mother requested SESAR to call pt's girlfriend, Susi as she does not have his apartment sears. SESAR Left a voice mail to pt's girlfriend, Susi, Phone; [phone] requesting a call back. Per Audrey, Susi will be at work until 1700 today. Discussed with RN.
[2019-02-09 10:55] VITALS: BP 105/81
--- NOTE | 2019-02-09 12:36 | NUR ---
SESAR following pt. Left a voice mail to pt's significant other, Susi again requesting a call back. Spoke with pt's mother and she will also try to contact Susi. Discussed with Pt's mother about concern of pt going to back to [facility] instead of [facility]. Pt's mother reported pt was unhappy at [facility] and wants to return to [facility]. SESAR informed pt's mom, pt has been max assist of 2 yesterday and did require help with feeding. Pt's mom stated they still would prefer for pt to return to [facility] and believes pt will be better when he is around a familiar environment. SESAR provided pt's mother with a phone number to [facility]. Awaiting on a call back from pt's Melva.Susi Maki.
[2019-02-09 15:00] VITALS: BP 106/75
--- NOTE | 2019-02-09 16:18 | PDOC ---
PROGRESS NOTES Chief Complaint Chief Complaint LATE ENTRY, tried to DC on 02/07, ID consult wanted to stay for blood cx was indeterminate UTI with sepsis and metabolic encephalopathy. G neg ruchi bacteremia MS HTN Expressive aphasia Old stroke History of Present Illness History of Present Illness 02/09. now family doesnt want him to return to [facility], want a new facility, refusing transfer, will try to find, may need to be done over there. cont current he is more pleasant today, but wants to leave, stll word salad at times 02/07. he felt well, tired to be be DC no event Vitals Vitals Vital Signs Date Time Temp Pulse Resp B/P (MAP) Pulse Ox O2 Delivery O2 Flow Rate FiO2 02/09/19 15:00 97.6 62 18 106/75 (85) 95 Room Air 97.6 Physical Exam Physical Exam GENERAL: Propped up in bed, upset, HEART: S1, S2 regular. 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 touch COAGULATOR: Alert, expressive asphasia - less sensible today General: Alert, mild distress, Other (agitated, angry, ) Heart: Regular rate, Normal S1 Lungs: Clear Abdomen: Normal bowel sounds Extremities: No clubbing, No cyanosis Skin: No rashes Labs LABS Laboratory Tests Test 02/09/19 03:20 02/09/19 03:25 Sodium Level 146 mmol/L (136-145) Potassium Level 3.7 mmol/L (3.5-5.1) Chloride Level 107 mmol/L (98-107) Carbon Dioxide Level 30 mmol/L (21-32) Anion Gap 9 (6-14) Blood Urea Nitrogen 17 mg/dL (8-26) Creatinine 1.4 mg/dL (0.7-1.3) Estimated GFR (Cockcroft-Gault) 62.8 Glucose Level 110 mg/dL (70-99) Calcium Level 8.7 mg/dL (8.5-10.1) White Blood Count 3.2 x10^3/uL (4.0-11.0) Red Blood Count 3.30 x10^6/uL (4.30-5.70) Hemoglobin 10.4 g/dL (13.0-17.5) Hematocrit 31.5 % (39.0-53.0) Mean Corpuscular Volume 96 fL (79-100) Mean Corpuscular Hemoglobin 32 pg (25-35) Mean Corpuscular Hemoglobin Concent 33 g/dL (31-37) Red Cell Distribution Width 14.7 % (11.5-14.5) Platelet Count 376 x10^3/uL (140-400) Neutrophils (%) (Auto) 56 % (31-73) Lymphocytes (%) (Auto) 30 % (24-48) Monocytes (%) (Auto) 13 % (0-9) Eosinophils (%) (Auto) 1 % (0-3) Basophils (%) (Auto) 0 % (0-3) Neutrophils # (Auto) 1.8 x10^3uL (1.8-7.7) Lymphocytes # (Auto) 1.0 x10^3/uL (1.0-4.8) Monocytes # (Auto) 0.4 x10^3/uL (0.0-1.1) Eosinophils # (Auto) 0.0 x10^3/uL (0.0-0.7) Basophils # (Auto) 0.0 x10^3/uL (0.0-0.2) Assessment and Plan Assessmemt and Plan Problems Medical Problems: (1) Encephalopathy Status: Acute (2) Fever Status: Acute (3) Pneumonia Status: Acute (4) Sepsis secondary to UTI Status: Acute (5) UTI (urinary tract infection) Status: Acute Comment Review of Relevant I have reviewed the following items davion (where applicable) has been applied. Labs Laboratory Tests Test 02/08/19 10:52 02/09/19 03:20 02/09/19 03:25 White Blood Count 4.1 x10^3/uL (4.0-11.0) 3.2 x10^3/uL (4.0-11.0) Red Blood Count 3.50 x10^6/uL (4.30-5.70) 3.30 x10^6/uL (4.30-5.70) Hemoglobin 11.6 g/dL (13.0-17.5) 10.4 g/dL (13.0-17.5) Hematocrit 33.3 % (39.0-53.0) 31.5 % (39.0-53.0) Mean Corpuscular Volume 95 fL (79-100) 96 fL (79-100) Mean Corpuscular Hemoglobin 33 pg (25-35) 32 pg (25-35) Mean Corpuscular Hemoglobin Concent 35 g/dL (31-37) 33 g/dL (31-37) Red Cell Distribution Width 14.5 % (11.5-14.5) 14.7 % (11.5-14.5) Platelet Count 383 x10^3/uL (140-400) 376 x10^3/uL (140-400) Neutrophils (%) (Auto) 73 % (31-73) 56 % (31-73) Lymphocytes (%) (Auto) 16 % (24-48) 30 % (24-48) Monocytes (%) (Auto) 10 % (0-9) 13 % (0-9) Eosinophils (%) (Auto) 1 % (0-3) 1 % (0-3) Basophils (%) (Auto) 0 % (0-3) 0 % (0-3) Neutrophils # (Auto) 3.0 x10^3uL (1.8-7.7) 1.8 x10^3uL (1.8-7.7) Lymphocytes # (Auto) 0.7 x10^3/uL (1.0-4.8) 1.0 x10^3/uL (1.0-4.8) Monocytes # (Auto) 0.4 x10^3/uL (0.0-1.1) 0.4 x10^3/uL (0.0-1.1) Eosinophils # (Auto) 0.0 x10^3/uL (0.0-0.7) 0.0 x10^3/uL (0.0-0.7) Basophils # (Auto) 0.0 x10^3/uL (0.0-0.2) 0.0 x10^3/uL (0.0-0.2) Sodium Level 144 mmol/L (136-145) 146 mmol/L (136-145) Potassium Level 3.6 mmol/L (3.5-5.1) 3.7 mmol/L (3.5-5.1) Chloride Level 105 mmol/L (98-107) 107 mmol/L (98-107) Carbon Dioxide Level 28 mmol/L (21-32) 30 mmol/L (21-32) Anion Gap 11 (6-14) 9 (6-14) Blood Urea Nitrogen 16 mg/dL (8-26) 17 mg/dL (8-26) Creatinine 1.3 mg/dL (0.7-1.3) 1.4 mg/dL (0.7-1.3) Estimated GFR (Cockcroft-Gault) 68.4 62.8 Glucose Level 90 mg/dL (70-99) 110 mg/dL (70-99) Calcium Level 9.5 mg/dL (8.5-10.1) 8.7 mg/dL (8.5-10.1) Laboratory Tests Test 02/09/19 03:20 02/09/19 03:25 Sodium Level 146 mmol/L (136-145) Potassium Level 3.7 mmol/L (3.5-5.1) Chloride Level 107 mmol/L (98-107) Carbon Dioxide Level 30 mmol/L (21-32) Anion Gap 9 (6-14) Blood Urea Nitrogen 17 mg/dL (8-26) Creatinine 1.4 mg/dL (0.7-1.3) Estimated GFR (Cockcroft-Gault) 62.8 Glucose Level 110 mg/dL (70-99) Calcium Level 8.7 mg/dL (8.5-10.1) White Blood Count 3.2 x10^3/uL (4.0-11.0) Red Blood Count 3.30 x10^6/uL (4.30-5.70) Hemoglobin 10.4 g/dL (13.0-17.5) Hematocrit 31.5 % (39.0-53.0) Mean Corpuscular Volume 96 fL (79-100) Mean Corpuscular Hemoglobin 32 pg (25-35) Mean Corpuscular Hemoglobin Concent 33 g/dL (31-37) Red Cell Distribution Width 14.7 % (11.5-14.5) Platelet Count 376 x10^3/uL (140-400) Neutrophils (%) (Auto) 56 % (31-73) Lymphocytes (%) (Auto) 30 % (24-48) Monocytes (%) (Auto) 13 % (0-9) Eosinophils (%) (Auto) 1 % (0-3) Basophils (%) (Auto) 0 % (0-3) Neutrophils # (Auto) 1.8 x10^3uL (1.8-7.7) Lymphocytes # (Auto) 1.0 x10^3/uL (1.0-4.8) Monocytes # (Auto) 0.4 x10^3/uL (0.0-1.1) Eosinophils # (Auto) 0.0 x10^3/uL (0.0-0.7) Basophils # (Auto) 0.0 x10^3/uL (0.0-0.2) Microbiology 02/04/19 Blood Culture - Final, Complete 02/04/19 Blood Culture Result 1 (JAYDA) - Final, Complete 02/04/19 Antimicrobic Susceptibility - Final, Complete 02/04/19 Urine Culture - Final, Complete 02/04/19 Urine Culture Result 1 (JAYDA) - Final, Complete 02/04/19 Antimicrobic Susceptibility - Final, Complete Medications Current Medications Acetaminophen (Tylenol) 1,000 mg 1X ONCE PO ; Start 02/04/19 at 12:15; Stop 02/04/19 at 12:16; Status DC Sodium Chloride 1,000 ml @ 1,000 mls/hr Q1H IV Last administered on 02/04/19at 12:56; Start 02/04/19 at 12:07; Stop 02/04/19 at 13:06; Status DC Ceftriaxone Sodium (Rocephin) 1 gm 1X ONCE IVP Last administered on 02/04/19at 12:58; Start 02/04/19 at 12:15; Stop 02/04/19 at 12:16; Status DC Piperacillin Sod/ Tazobactam Sod (Zosyn Per Pharmacy) 1 each PRN DAILY PRN MC SEE COMMENTS; Start 02/04/19 at 13:15 Vancomycin HCl (Vanco Per Pharmacy) 1 each PRN DAILY PRN MC SEE COMMENTS Last administered on 02/04/19at 15:48; Start 02/04/19 at 13:15; Stop 02/05/19 at 08:47; Status DC Piperacillin Sod/ Tazobactam Sod 3.375 gm/Sodium Chloride 50 ml @ 100 mls/hr Q6HRS IV Last administered on 02/09/19at 12:40; Start 02/04/19 at 13:30 Vancomycin HCl 2 gm/Sodium Chloride 500 ml @ 250 mls/hr 1X ONCE IV Last administered on 02/04/19 15:34; Start 02/04/19 at 14:00; Stop 02/05/19 at 08:39; Status DC Lactobacillus Rhamnosus (Culturelle) 1 cap BID PO Last administered on 02/09/19 08:58; Start 02/04/19 at 21:00 Vancomycin HCl 1.25 gm/Sodium Chloride 250 ml @ 167 mls/hr Q12H IV Last administered on 02/05/19 04:25; Start 02/05/19 at 04:00; Stop 02/05/19 at 08:39; Status DC Vancomycin HCl (Vancomycin Trough Level) 1 each 1X ONCE MC ; Start 02/06/19 at 03:30; Stop 02/06/19 at 03:30; Status DC Amlodipine Besylate (Norvasc) 7.5 mg DAILY PO Last administered on 02/09/19 08:57; Start 02/05/19 at 11:00 Aspirin (Ecotrin) 81 mg DAILY PO Last administered on 02/09/19 08:57; Start 02/05/19 at 11:00 Cetirizine HCl (ZyrTEC) 10 mg PRN DAILY PRN PO ALLERGIES; Start 02/05/19 at 10:00 Cyclobenzaprine HCl (Flexeril) 10 mg PRN TID PRN PO MUSCLE SPASTICITY Last administered on 02/08/19 20:55; Start 02/05/19 at 10:00 Furosemide (Lasix) 40 mg DAILY PO Last administered on 02/09/19 08:59; Start 02/05/19 at 11:00 Gabapentin (Neurontin) 300 mg TID PO Last administered on 02/09/19 14:13; Start 02/05/19 at 11:00 Levetiracetam (Keppra) 500 mg BID PO Last administered on 02/09/19 09:00; Start 02/05/19 at 11:00 Lisinopril (Prinivil) 40 mg DAILY PO Last administered on 02/09/19 08:58; Start 02/05/19 at 11:00 Tamsulosin HCl (Flomax) 0.4 mg DAILY PO Last administered on 02/09/19 08:57; Start 02/05/19 at 11:00 Calcium/Vitamin D (Oscal D 500mg/ 200uts) 1 tab BIDWMEALS PO Last administered on 02/09/19 08:59; Start 02/05/19 at 11:00 Divalproex Sodium (Depakote) 500 mg BID PO Last administered on 02/09/19 08:58; Start 02/05/19 at 11:00 Non-Formulary Medication (Fingolimod Hcl (Gilenya)) 0.5 mg DAILY PO ; Start 02/06/19 at 09:00; Stop 02/06/19 at 13:48; Status DC Flecainide Acetate (Tambocor) 100 mg Q12HR PO Last administered on 02/09/19 08:57; Start 02/05/19 at 11:00 Fluticasone Propionate (Flonase) 2 spray DAILY NS ; Start 02/05/19 at 11:00; Status Cancel Ibuprofen (Motrin) 600 mg PRN Q8HRS PRN PO INFLAMMATION Last administered on 02/08/19 10:02; Start 02/05/19 at 10:30 Pantoprazole Sodium (Protonix) 40 mg DAILYAC PO Last administered on 02/09/19 08:58; Start 02/05/19 at 11:30 Oxycodone HCl (Roxicodone) 5 mg PRN Q4HRS PRN PO MODERATE TO SEVERE PAIN Last administered on 02/08/19 22:37; Start 02/05/19 at 10:45 Non-Formulary Medication (Polyethylene Glycol 3350 (Miralax)) 1 pkt DAILY PO ; Start 02/05/19 at 11:00; Stop 02/05/19 at 11:34; Status DC Risperidone (RisperDAL) 0.25 mg DAILY08 PO Last administered on 02/09/19 08:59; Start 02/05/19 at 10:45 Acetaminophen/ Aspirin/Caffeine (Excedrin Migraine) 1 tab PRN Q6HRS PRN PO MIGRAINE HEADACHE; Start 02/05/19 at 10:00 Clonidine HCl (Catapres Tts-3) 1 patch Tu TD ; Start 02/10/19 at 09:00 Metoprolol Tartrate (Lopressor) 50 mg BID PO Last administered on 02/09/19 08:59; Start 02/05/19 at 11:00 Polyethylene Glycol (miraLAX PACKET) 17 gm DAILY PO ; Start 02/05/19 at 12:00; Stop 02/05/19 at 12:00; Status DC Polyethylene Glycol (miraLAX PACKET) 17 gm DAILY PO Last administered on 02/09/19at 08:59; Start 02/06/19 at 09:00 Fluticasone Propionate (Flonase) 2 spray DAILY NS Last administered on 02/09/19at 08:56; Start 02/05/19 at 12:15 Haloperidol Lactate (Haldol Inj) 2 mg 1X ONCE IVP Last administered on 02/08/19at 09:57; Start 02/08/19 at 09:30; Stop 02/08/19 at 09:31; Status DC Active Scripts Active Culturelle (Lactobacillus Rhamnosus Gg) 1 Each Cap.sprink 1 Cap PO BID Cipro (Ciprofloxacin Hcl) 250 Mg Tablet 1 Tab PO BID Keppra (Levetiracetam) 500 Mg Tablet 1 Tab PO BID Risperdal (Risperidone) 0.25 Mg Tablet 0.25 Mg PO DAILY08 Reported Tamsulosin Hcl 0.4 Mg Cap.er.24h 1 Cap PO DAILY Miralax (Polyethylene Glycol 3350) 17 Gm Powd.pack 1 Pkt PO DAILY Oxycodone Hcl 5 Mg Capsule 5 Mg PO PRN Q4HRS PRN Omeprazole 20 Mg Tablet.dr 1 Tab PO DAILY Metoprolol Tartrate 50 Mg Tablet 1 Tab PO BID Lisinopril 40 Mg Tablet 1 Tab PO DAILY Ibuprofen 600 Mg Tablet 600 Mg PO PRN Q8HRS PRN Gabapentin (Gabapentin) 300 Mg Capsule 300 Mg PO TID Furosemide 40 Mg Tablet 1 Tab PO DAILY Flonase Allergy Relief (Fluticasone Propionate) 9.9 Ml Mico.susp 2 Sprays NS DAILY Flecainide Acetate 100 Mg Tablet 1 Tab PO BID Gilenya (Fingolimod Hcl) 0.5 Mg Capsule 0.5 Mg PO DAILY Divalproex Sodium 500 Mg Tablet.dr 1 Tab PO BID Cyclobenzaprine Hcl 10 Mg Tablet 1 Tab PO TID PRN Clonidine Tts-3 (Clonidine) 1 Each Patch.tdwk 1 Patch TD WEEKLY Cetirizine Hcl 10 Mg Tablet 1 Tab PO PRN DAILY PRN Caltrate+D3 Plus Mineral Minis (Ca Carb/D3/Mag Ox/Cable Television Installer/Carlos/Zn) 1 Each Tablet 1 Each PO BID [id number] 50-325-40 (Butalb/Acetaminophen/Caffeine) 1 Each Tablet 1 Each PO PRN Q4HRS PRN Aspir 81 (Aspirin) 81 Mg Tablet. 1 Tab PO DAILY Amlodipine Besylate 5 Mg Tablet 7.5 Mg PO DAILY Vitals/I & O Vital Sign - Last 24 Hours 02/08/19 02/08/19 02/08/19 02/08/19 19:20 19:30 20:56 20:56 Temp 97.6 97.6 Pulse 71 71 71 Resp 20 B/P (MAP) 102/78 (86) 102/78 102/78 Pulse Ox 98 O2 Delivery Room Air Room Air 02/08/19 02/08/19 02/08/19 02/09/19 22:37 22:37 23:37 03:32 Temp 97.3 98.3 97.3 98.3 Pulse 63 57 Resp 20 20 20 18 B/P (MAP) 111/85 (94) 118/71 (87) Pulse Ox 95 95 94 O2 Delivery Room Air Room Air Room Air Room Air 02/09/19 02/09/19 02/09/19 02/09/19 07:00 08:00 08:57 08:57 Temp 97.5 97.5 Pulse 56 56 56 Resp 18 B/P (MAP) 113/80 (91) 113/80 113/80 Pulse Ox 96 O2 Delivery Room Air Room Air 02/09/19 02/09/19 02/09/19 02/09/19 08:58 08:59 10:55 15:00 Temp 97.6 97.6 97.6 97.6 Pulse 56 56 63 62 Resp 18 18 B/P (MAP) 113/80 113/80 105/81 (89) 106/75 (85) Pulse Ox 95 95 O2 Delivery Room Air Room Air Intake and Output 02/08/19 02/08/19 02/09/19 15:00 23:00 07:00 Intake Total 300 ml 170 ml Balance 300 ml 170 ml AFIA CUEVAS MD Feb 09, 2019 16:18
--- NOTE | 2019-02-09 17:12 | NUR ---
AFTER SPEAKING WITH PATIENTS' GIRLFRIEND AND ATTEMPTING TO NOTIFY PATIENTS' MOTHER IT HAS BEEN FOUND THAT THE PATIENT DOES NOT HAVE A SAFE PLACE TO DISCHARGE TO AT THIS TIME, PATIENT IS REQUIRING 2 PERSON ASSIST WHILE HER AT THE HOSPITAL FOR ALL ADLS, REMAINS CONFUSED AND REFUSES TO WORK WITH PHYSICAL THERAPY, DR. CUEVAS INFORMED AND THIS CHRONIC SPECIALIST SPOKE WITH THE UNCLAIMED PROPERTY MANAGER REGARDING THIS MATTER.
--- NOTE | 2019-02-09 18:55 | PDOC ---
Infectious Disease Note Subjective Subjective Comfortable No fevers last 48 hours + soft BM States he is ok and [birth year] ROS ROS difficult to obtain with aphasia Vital Sign Vital Signs Vital Signs Date Time Temp Pulse Resp B/P (MAP) Pulse Ox O2 Delivery O2 Flow Rate FiO2 02/09/19 15:00 97.6 62 18 106/75 (85) 95 Room Air 97.6 Physical Exam PHYSICAL EXAM GENERAL: Propped up in bed, NAD HEENT: PERRL, OC/Op - clear NECK - supple no JVD HEART: S1, S2 regular. 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 touch HEEL CUTTER: Alert, expressive asphasia - less sensible today Labs Lab Laboratory Tests Test 02/09/19 03:20 02/09/19 03:25 Sodium Level 146 mmol/L (136-145) Potassium Level 3.7 mmol/L (3.5-5.1) Chloride Level 107 mmol/L (98-107) Carbon Dioxide Level 30 mmol/L (21-32) Anion Gap 9 (6-14) Blood Urea Nitrogen 17 mg/dL (8-26) Creatinine 1.4 mg/dL (0.7-1.3) Estimated GFR (Cockcroft-Gault) 62.8 Glucose Level 110 mg/dL (70-99) Calcium Level 8.7 mg/dL (8.5-10.1) White Blood Count 3.2 x10^3/uL (4.0-11.0) Red Blood Count 3.30 x10^6/uL (4.30-5.70) Hemoglobin 10.4 g/dL (13.0-17.5) Hematocrit 31.5 % (39.0-53.0) Mean Corpuscular Volume 96 fL (79-100) Mean Corpuscular Hemoglobin 32 pg (25-35) Mean Corpuscular Hemoglobin Concent 33 g/dL (31-37) Red Cell Distribution Width 14.7 % (11.5-14.5) Platelet Count 376 x10^3/uL (140-400) Neutrophils (%) (Auto) 56 % (31-73) Lymphocytes (%) (Auto) 30 % (24-48) Monocytes (%) (Auto) 13 % (0-9) Eosinophils (%) (Auto) 1 % (0-3) Basophils (%) (Auto) 0 % (0-3) Neutrophils # (Auto) 1.8 x10^3uL (1.8-7.7) Lymphocytes # (Auto) 1.0 x10^3/uL (1.0-4.8) Monocytes # (Auto) 0.4 x10^3/uL (0.0-1.1) Eosinophils # (Auto) 0.0 x10^3/uL (0.0-0.7) Basophils # (Auto) 0.0 x10^3/uL (0.0-0.2) Micro Microbiology 02/04/19 Blood Culture - Final, Complete BLOOD CULTURE LC Final Final report BLD CULT RESULT 1 Final Escherichia coli ANTIMICROBIAL SUSCEPTIBILITY Final Comment S = Susceptible; I = Intermediate; R = Resistant P = Positive; N = Negative MICS are expressed in micrograms per mL Antibiotic RSLT#1 RSLT#2 RSLT#3 RSLT#4 Amoxicillin/Clavulanic Acid S =8 Ampicillin R>=32 Cefepime S<=0.12 Ceftriaxone S<=0.25 Cefuroxime S =4 Ciprofloxacin S<=0.25 Ertapenem S<=0.12 Gentamicin S<=1 Imipenem S<=0.25 Levofloxacin S<=0.12 Meropenem S<=0.25 Piperacillin/Tazobactam S<=4 Tetracycline S<=1 Tobramycin S<=1 Trimethoprim/Sulfa S<=20 02/04/19 Blood Culture Result 1 (JAYDA) - Final, Complete 02/04/19 Antimicrobic Susceptibility - Final, Complete 02/04/19 Urine Culture - Final, Complete 02/04/19 Urine Culture Result 1 (JAYDA) - Final, Complete URINE CULTURE RES 1 Final Escherichia coli Greater than 100,000 colony forming units per mL Cefazolin <=4 ug/mL Cefazolin with an JAYDA <=16 predicts susceptibility to the oral agents cefaclor, cefdinir, cefpodoxime, cefprozil, cefuroxime, cephalexin, and loracarbef when used for therapy of uncomplicated urinary tract infections due to E. coli, Klebsiella pneumoniae, and Proteus mirabilis. ANTIMICROBIAL SUSCEPTIBILITY Final Comment S = Susceptible; I = Intermediate; R = Resistant P = Positive; N = Negative MICS are expressed in micrograms per mL Antibiotic RSLT#1 RSLT#2 RSLT#3 RSLT#4 Amoxicillin/Clavulanic Acid S =8 Ampicillin R>=32 Cefepime S<=0.12 Ceftriaxone S<=0.25 Cefuroxime S =4 Ciprofloxacin S<=0.25 Ertapenem S<=0.12 Gentamicin S<=1 Imipenem S<=0.25 Levofloxacin S<=0.12 Meropenem S<=0.25 Nitrofurantoin S<=16 Piperacillin/Tazobactam S<=4 Tetracycline S<=1 Tobramycin S<=1 Trimethoprim/Sulfa S<=20 02/04/19 Antimicrobic Susceptibility - Final, Complete Objective Assessment G neg ruchi bacteremia with sepsis (POA) E. coli UTI (POA) Leukopenia - better Encephalopathy, improved MS HTN Plan Plan of Care Discontinue Zosyn begin Rocephin for now Probiotics D/w nursing KALYANI AGUILAR MD Feb 09, 2019 18:55
[2019-02-09 19:00] VITALS: BP 123/92
[2019-02-09] MEDS ORDERED: cefTRIAXone IV Push 2 GM VIAL. IVP SCH (20:00)
[2019-02-09 23:00] VITALS: BP 123/96
[2019-02-10 03:00] VITALS: BP 123/96
[2019-02-10 05:53] LABS: BASO % 0 % (0-3); EOS # 0.1 x10^3/uL (0.0-0.7); EOS % 2 % (0-3); HEMATOCRIT 36.1 % (39.0-53.0); HEMOGLOBIN 11.9 g/dL (13.0-17.5); LYMPH % 31 % (24-48); MEAN CORPUSCULAR HEMOGLOBIN 32 pg (25-35); MEAN CORPUSCULAR HGB CONC 33 g/dL (31-37); MEAN CORPUSCULAR VOLUME 96 fL (79-100); MONO # 0.3 x10^3/uL (0.0-1.1); MONO % 10 % (0-9); NEUT # 1.8 x10^3uL (1.8-7.7); NEUT % 57 % (31-73); PLATELET COUNT 364 x10^3/uL (140-400); RED BLOOD COUNT 3.74 x10^6/uL (4.30-5.70); RED CELL DISTRIBUTION WIDTH 14.7 % (11.5-14.5); WHITE BLOOD COUNT 3.1 x10^3/uL (4.0-11.0)
[2019-02-10 05:56] LABS: CALCIUM 9.2 mg/dL (8.5-10.1); CREATININE 1.3 mg/dL (0.7-1.3); GFR 68.4
[2019-02-10 07:00] VITALS: BP 120/90
--- NOTE | 2019-02-10 08:02 | PDOC ---
PROGRESS NOTES Chief Complaint Chief Complaint A/P: UTI with sepsis and metabolic encephalopathy Gram neg ruchi bacteremia - e coli MS? HTN Expressive aphasia Old stroke History of Present Illness History of Present Illness Mr Mendez is a 58-year-old M who is a [facility] resident w/ PMHx expressive aphasia, stroke, and multiple sclerosis; who has been sent in for mental status change and fevers. The patient was found to have abnormal urinalysis. The patient's blood culture is positive with e. coli as well as his urine, had a fever up to 102.7 and the patient had been put on vancomycin and Zosyn. The patient is able to communicate, but it is non-sensical and he does not follow mo st commands. Family are involved in his care. 02/09. now family doesnt want him to return to [facility], want a new facility, refusing transfer, will try to find, may need to be done over there. cont current he is more pleasant today, but wants to leave, still word salad at times. E coli positive on urine and blood. On rocephin. Vitals Vitals Vital Signs Date Time Temp Pulse Resp B/P (MAP) Pulse Ox O2 Delivery O2 Flow Rate FiO2 02/10/19 07:00 97.6 59 14 120/90 (100) 95 Room Air 97.6 Physical Exam Physical Exam GENERAL: Propped up in bed, NAD HEENT: PERRL, OC/Op - clear NECK - supple no JVD HEART: S1, S2 regular. 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, expressive asphasia - less sensible today General: Alert, mild distress, Other (agitated, angry, ) Heart: Regular rate, Normal S1 Lungs: Clear Abdomen: Normal bowel sounds Extremities: No clubbing, No cyanosis Skin: No rashes Labs LABS Laboratory Tests Test 02/10/19 05:00 White Blood Count 3.1 x10^3/uL (4.0-11.0) Red Blood Count 3.74 x10^6/uL (4.30-5.70) Hemoglobin 11.9 g/dL (13.0-17.5) Hematocrit 36.1 % (39.0-53.0) Mean Corpuscular Volume 96 fL (79-100) Mean Corpuscular Hemoglobin 32 pg (25-35) Mean Corpuscular Hemoglobin Concent 33 g/dL (31-37) Red Cell Distribution Width 14.7 % (11.5-14.5) Platelet Count 364 x10^3/uL (140-400) Neutrophils (%) (Auto) 57 % (31-73) Lymphocytes (%) (Auto) 31 % (24-48) Monocytes (%) (Auto) 10 % (0-9) Eosinophils (%) (Auto) 2 % (0-3) Basophils (%) (Auto) 0 % (0-3) Neutrophils # (Auto) 1.8 x10^3uL (1.8-7.7) Lymphocytes # (Auto) 1.0 x10^3/uL (1.0-4.8) Monocytes # (Auto) 0.3 x10^3/uL (0.0-1.1) Eosinophils # (Auto) 0.1 x10^3/uL (0.0-0.7) Basophils # (Auto) 0.0 x10^3/uL (0.0-0.2) Sodium Level 146 mmol/L (136-145) Potassium Level 4.0 mmol/L (3.5-5.1) Chloride Level 105 mmol/L (98-107) Carbon Dioxide Level 30 mmol/L (21-32) Anion Gap 11 (6-14) Blood Urea Nitrogen 15 mg/dL (8-26) Creatinine 1.3 mg/dL (0.7-1.3) Estimated GFR (Cockcroft-Gault) 68.4 Glucose Level 80 mg/dL (70-99) Calcium Level 9.2 mg/dL (8.5-10.1) Assessment and Plan Assessmemt and Plan Problems Medical Problems: (1) Fever Status: Acute (2) Pneumonia Status: Acute (3) Sepsis secondary to UTI Status: Acute (4) UTI (urinary tract infection) Status: Acute Comment Review of Relevant I have reviewed the following items davion (where applicable) has been applied. Labs Laboratory Tests Test 02/08/19 10:52 02/09/19 03:20 02/09/19 03:25 02/10/19 05:00 White Blood Count 4.1 x10^3/uL (4.0-11.0) 3.2 x10^3/uL (4.0-11.0) 3.1 x10^3/uL (4.0-11.0) Red Blood Count 3.50 x10^6/uL (4.30-5.70) 3.30 x10^6/uL (4.30-5.70) 3.74 x10^6/uL (4.30-5.70) Hemoglobin 11.6 g/dL (13.0-17.5) 10.4 g/dL (13.0-17.5) 11.9 g/dL (13.0-17.5) Hematocrit 33.3 % (39.0-53.0) 31.5 % (39.0-53.0) 36.1 % (39.0-53.0) Mean Corpuscular Volume 95 fL (79-100) 96 fL (79-100) 96 fL (79-100) Mean Corpuscular Hemoglobin 33 pg (25-35) 32 pg (25-35) 32 pg (25-35) Mean Corpuscular Hemoglobin Concent 35 g/dL (31-37) 33 g/dL (31-37) 33 g/dL (31-37) Red Cell Distribution Width 14.5 % (11.5-14.5) 14.7 % (11.5-14.5) 14.7 % (11.5-14.5) Platelet Count 383 x10^3/uL (140-400) 376 x10^3/uL (140-400) 364 x10^3/uL (140-400) Neutrophils (%) (Auto) 73 % (31-73) 56 % (31-73) 57 % (31-73) Lymphocytes (%) (Auto) 16 % (24-48) 30 % (24-48) 31 % (24-48) Monocytes (%) (Auto) 10 % (0-9) 13 % (0-9) 10 % (0-9) Eosinophils (%) (Auto) 1 % (0-3) 1 % (0-3) 2 % (0-3) Basophils (%) (Auto) 0 % (0-3) 0 % (0-3) 0 % (0-3) Neutrophils # (Auto) 3.0 x10^3uL (1.8-7.7) 1.8 x10^3uL (1.8-7.7) 1.8 x10^3uL (1.8-7.7) Lymphocytes # (Auto) 0.7 x10^3/uL (1.0-4.8) 1.0 x10^3/uL (1.0-4.8) 1.0 x10^3/uL (1.0-4.8) Monocytes # (Auto) 0.4 x10^3/uL (0.0-1.1) 0.4 x10^3/uL (0.0-1.1) 0.3 x10^3/uL (0.0-1.1) Eosinophils # (Auto) 0.0 x10^3/uL (0.0-0.7) 0.0 x10^3/uL (0.0-0.7) 0.1 x10^3/uL (0.0-0.7) Basophils # (Auto) 0.0 x10^3/uL (0.0-0.2) 0.0 x10^3/uL (0.0-0.2) 0.0 x10^3/uL (0.0-0.2) Sodium Level 144 mmol/L (136-145) 146 mmol/L (136-145) 146 mmol/L (136-145) Potassium Level 3.6 mmol/L (3.5-5.1) 3.7 mmol/L (3.5-5.1) 4.0 mmol/L (3.5-5.1) Chloride Level 105 mmol/L (98-107) 107 mmol/L (98-107) 105 mmol/L (98-107) Carbon Dioxide Level 28 mmol/L (21-32) 30 mmol/L (21-32) 30 mmol/L (21-32) Anion Gap 11 (6-14) 9 (6-14) 11 (6-14) Blood Urea Nitrogen 16 mg/dL (8-26) 17 mg/dL (8-26) 15 mg/dL (8-26) Creatinine 1.3 mg/dL (0.7-1.3) 1.4 mg/dL (0.7-1.3) 1.3 mg/dL (0.7-1.3) Estimated GFR (Cockcroft-Gault) 68.4 62.8 68.4 Glucose Level 90 mg/dL (70-99) 110 mg/dL (70-99) 80 mg/dL (70-99) Calcium Level 9.5 mg/dL (8.5-10.1) 8.7 mg/dL (8.5-10.1) 9.2 mg/dL (8.5-10.1) Laboratory Tests Test 02/10/19 05:00 White Blood Count 3.1 x10^3/uL (4.0-11.0) Red Blood Count 3.74 x10^6/uL (4.30-5.70) Hemoglobin 11.9 g/dL (13.0-17.5) Hematocrit 36.1 % (39.0-53.0) Mean Corpuscular Volume 96 fL (79-100) Mean Corpuscular Hemoglobin 32 pg (25-35) Mean Corpuscular Hemoglobin Concent 33 g/dL (31-37) Red Cell Distribution Width 14.7 % (11.5-14.5) Platelet Count 364 x10^3/uL (140-400) Neutrophils (%) (Auto) 57 % (31-73) Lymphocytes (%) (Auto) 31 % (24-48) Monocytes (%) (Auto) 10 % (0-9) Eosinophils (%) (Auto) 2 % (0-3) Basophils (%) (Auto) 0 % (0-3) Neutrophils # (Auto) 1.8 x10^3uL (1.8-7.7) Lymphocytes # (Auto) 1.0 x10^3/uL (1.0-4.8) Monocytes # (Auto) 0.3 x10^3/uL (0.0-1.1) Eosinophils # (Auto) 0.1 x10^3/uL (0.0-0.7) Basophils # (Auto) 0.0 x10^3/uL (0.0-0.2) Sodium Level 146 mmol/L (136-145) Potassium Level 4.0 mmol/L (3.5-5.1) Chloride Level 105 mmol/L (98-107) Carbon Dioxide Level 30 mmol/L (21-32) Anion Gap 11 (6-14) Blood Urea Nitrogen 15 mg/dL (8-26) Creatinine 1.3 mg/dL (0.7-1.3) Estimated GFR (Cockcroft-Gault) 68.4 Glucose Level 80 mg/dL (70-99) Calcium Level 9.2 mg/dL (8.5-10.1) Microbiology 02/04/19 Blood Culture - Final, Complete 02/04/19 Blood Culture Result 1 (JAYDA) - Final, Complete 02/04/19 Antimicrobic Susceptibility - Final, Complete 02/04/19 Urine Culture - Final, Complete 02/04/19 Urine Culture Result 1 (JAYDA) - Final, Complete 02/04/19 Antimicrobic Susceptibility - Final, Complete Medications Current Medications Acetaminophen (Tylenol) 1,000 mg 1X ONCE PO ; Start 02/04/19 at 12:15; Stop 02/04/19 at 12:16; Status DC Sodium Chloride 1,000 ml @ 1,000 mls/hr Q1H IV Last administered on 02/04/19at 12:56; Start 02/04/19 at 12:07; Stop 02/04/19 at 13:06; Status DC Ceftriaxone Sodium (Rocephin) 1 gm 1X ONCE IVP Last administered on 02/04/19at 12:58; Start 02/04/19 at 12:15; Stop 02/04/19 at 12:16; Status DC Piperacillin Sod/ Tazobactam Sod (Zosyn Per Pharmacy) 1 each PRN DAILY PRN MC SEE COMMENTS; Start 02/04/19 at 13:15; Stop 02/09/19 at 18:54; Status DC Vancomycin HCl (Vanco Per Pharmacy) 1 each PRN DAILY PRN MC SEE COMMENTS Last administered on 02/04/19at 15:48; Start 02/04/19 at 13:15; Stop 02/05/19 at 08:47; Status DC Piperacillin Sod/ Tazobactam Sod 3.375 gm/Sodium Chloride 50 ml @ 100 mls/hr Q6HRS IV Last administered on 02/09/19at 18:22; Start 02/04/19 at 13:30; Stop 02/09/19 at 18:54; Status DC Vancomycin HCl 2 gm/Sodium Chloride 500 ml @ 250 mls/hr 1X ONCE IV Last administered on 02/04/19at 15:34; Start 02/04/19 at 14:00; Stop 02/05/19 at 08:39; Status DC Lactobacillus Rhamnosus (Culturelle) 1 cap BID PO Last administered on 02/09/19 20:37; Start 02/04/19 at 21:00 Vancomycin HCl 1.25 gm/Sodium Chloride 250 ml @ 167 mls/hr Q12H IV Last administered on 02/05/19 04:25; Start 02/05/19 at 04:00; Stop 02/05/19 at 08:39; Status DC Vancomycin HCl (Vancomycin Trough Level) 1 each 1X ONCE MC ; Start 02/06/19 at 03:30; Stop 02/06/19 at 03:30; Status DC Amlodipine Besylate (Norvasc) 7.5 mg DAILY PO Last administered on 02/09/19 08:57; Start 02/05/19 at 11:00 Aspirin (Ecotrin) 81 mg DAILY PO Last administered on 02/09/19 08:57; Start 02/05/19 at 11:00 Cetirizine HCl (ZyrTEC) 10 mg PRN DAILY PRN PO ALLERGIES; Start 02/05/19 at 10:00 Cyclobenzaprine HCl (Flexeril) 10 mg PRN TID PRN PO MUSCLE SPASTICITY Last administered on 02/08/19 20:55; Start 02/05/19 at 10:00 Furosemide (Lasix) 40 mg DAILY PO Last administered on 02/09/19 08:59; Start 02/05/19 at 11:00 Gabapentin (Neurontin) 300 mg TID PO Last administered on 02/09/19 20:37; Start 02/05/19 at 11:00 Levetiracetam (Keppra) 500 mg BID PO Last administered on 02/09/19 20:38; Start 02/05/19 at 11:00 Lisinopril (Prinivil) 40 mg DAILY PO Last administered on 02/09/19 08:58; Start 02/05/19 at 11:00 Tamsulosin HCl (Flomax) 0.4 mg DAILY PO Last administered on 02/09/19 08:57; Start 02/05/19 at 11:00 Calcium/Vitamin D (Oscal D 500mg/ 200uts) 1 tab BIDWMEALS PO Last administered on 02/09/19 18:21; Start 02/05/19 at 11:00 Divalproex Sodium (Depakote) 500 mg BID PO Last administered on 02/09/19 20:35; Start 02/05/19 at 11:00 Non-Formulary Medication (Fingolimod Hcl (Gilenya)) 0.5 mg DAILY PO ; Start 02/06/19 at 09:00; Stop 02/06/19 at 13:48; Status DC Flecainide Acetate (Tambocor) 100 mg Q12HR PO Last administered on 02/09/19 20:36; Start 02/05/19 at 11:00 Fluticasone Propionate (Flonase) 2 spray DAILY NS ; Start 02/05/19 at 11:00; Status Cancel Ibuprofen (Motrin) 600 mg PRN Q8HRS PRN PO INFLAMMATION Last administered on 02/08/19 10:02; Start 02/05/19 at 10:30 Pantoprazole Sodium (Protonix) 40 mg DAILYAC PO Last administered on 02/09/19 08:58; Start 02/05/19 at 11:30 Oxycodone HCl (Roxicodone) 5 mg PRN Q4HRS PRN PO MODERATE TO SEVERE PAIN Last administered on 02/08/19 22:37; Start 02/05/19 at 10:45 Non-Formulary Medication (Polyethylene Glycol 3350 (Miralax)) 1 pkt DAILY PO ; Start 02/05/19 at 11:00; Stop 02/05/19 at 11:34; Status DC Risperidone (RisperDAL) 0.25 mg DAILY08 PO Last administered on 02/09/19 08:59; Start 02/05/19 at 10:45 Acetaminophen/ Aspirin/Caffeine (Excedrin Migraine) 1 tab PRN Q6HRS PRN PO MIGRAINE HEADACHE; Start 02/05/19 at 10:00 Clonidine HCl (Catapres Tts-3) 1 patch Tu TD ; Start 02/10/19 at 09:00 Metoprolol Tartrate (Lopressor) 50 mg BID PO Last administered on 02/09/19 20:37; Start 02/05/19 at 11:00 Polyethylene Glycol (miraLAX PACKET) 17 gm DAILY PO ; Start 02/05/19 at 12:00; Stop 02/05/19 at 12:00; Status DC Polyethylene Glycol (miraLAX PACKET) 17 gm DAILY PO Last administered on 02/09/19at 08:59; Start 02/06/19 at 09:00 Fluticasone Propionate (Flonase) 2 spray DAILY NS Last administered on 02/09/19at 08:56; Start 02/05/19 at 12:15 Haloperidol Lactate (Haldol Inj) 2 mg 1X ONCE IVP Last administered on 02/08/19at 09:57; Start 02/08/19 at 09:30; Stop 02/08/19 at 09:31; Status DC Ceftriaxone Sodium (Rocephin) 2 gm Q24H IVP Last administered on 02/09/19at 20:40; Start 02/09/19 at 20:00 Active Scripts Active Culturelle (Lactobacillus Rhamnosus Gg) 1 Each Cap.sprink 1 Cap PO BID Cipro (Ciprofloxacin Hcl) 250 Mg Tablet 1 Tab PO BID Keppra (Levetiracetam) 500 Mg Tablet 1 Tab PO BID Risperdal (Risperidone) 0.25 Mg Tablet 0.25 Mg PO DAILY08 Reported Tamsulosin Hcl 0.4 Mg Cap.er.24h 1 Cap PO DAILY Miralax (Polyethylene Glycol 3350) 17 Gm Powd.pack 1 Pkt PO DAILY Oxycodone Hcl 5 Mg Capsule 5 Mg PO PRN Q4HRS PRN Omeprazole 20 Mg Tablet.dr 1 Tab PO DAILY Metoprolol Tartrate 50 Mg Tablet 1 Tab PO BID Lisinopril 40 Mg Tablet 1 Tab PO DAILY Ibuprofen 600 Mg Tablet 600 Mg PO PRN Q8HRS PRN Gabapentin (Gabapentin) 300 Mg Capsule 300 Mg PO TID Furosemide 40 Mg Tablet 1 Tab PO DAILY Flonase Allergy Relief (Fluticasone Propionate) 9.9 Ml Hugo.susp 2 Sprays NS DAILY Flecainide Acetate 100 Mg Tablet 1 Tab PO BID Gilenya (Fingolimod Hcl) 0.5 Mg Capsule 0.5 Mg PO DAILY Divalproex Sodium 500 Mg Tablet.dr 1 Tab PO BID Cyclobenzaprine Hcl 10 Mg Tablet 1 Tab PO TID PRN Clonidine Tts-3 (Clonidine) 1 Each Patch.tdwk 1 Patch TD WEEKLY Cetirizine Hcl 10 Mg Tablet 1 Tab PO PRN DAILY PRN Caltrate+D3 Plus Mineral Minis (Ca Carb/D3/Mag Ox/Nurses' Association Counselor/Carlos/Zn) 1 Each Tablet 1 Each PO BID Xoehcg-Wkxkqweb-Snhx 50-325-40 (Butalb/Acetaminophen/Caffeine) 1 Each Tablet 1 Each PO PRN Q4HRS PRN Aspir 81 (Aspirin) 81 Mg Tablet. 1 Tab PO DAILY Amlodipine Besylate 5 Mg Tablet 7.5 Mg PO DAILY Vitals/I & O Vital Sign - Last 24 Hours 02/09/19 02/09/19 02/09/19 02/09/19 08:00 08:57 08:57 08:58 Pulse 56 56 56 B/P (MAP) 113/80 113/80 113/80 O2 Delivery Room Air 02/09/19 02/09/19 02/09/19 02/09/19 08:59 10:55 15:00 19:00 Temp 97.6 97.6 97.7 97.6 97.6 97.7 Pulse 56 63 62 61 Resp 18 18 18 B/P (MAP) 113/80 105/81 (89) 106/75 (85) 123/92 (102) Pulse Ox 95 95 93 O2 Delivery Room Air Room Air Room Air 02/09/19 02/09/19 02/09/19 02/09/19 20:00 20:36 20:37 23:00 Temp 97.5 97.5 Pulse 62 62 58 Resp 18 B/P (MAP) 106/75 106/75 123/96 (105) Pulse Ox 96 O2 Delivery Room Air Room Air 02/10/19 02/10/19 03:00 07:00 Temp 97.5 97.6 97.5 97.6 Pulse 58 59 Resp 18 14 B/P (MAP) 123/96 (105) 120/90 (100) Pulse Ox 96 95 O2 Delivery Room Air Room Air Intake and Output 02/09/19 02/09/19 02/10/19 14:59 22:59 06:59 Intake Total 300 ml 500 ml 300 ml Balance 300 ml 500 ml 300 ml JULIA MILAN MD Feb 10, 2019 08:02
--- NOTE | 2019-02-10 08:11 | NUR ---
Late Entry:On 02/09/19 around 1550, SESAR spoke with pt's S.O. Susi extensively regarding dc plan. 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 Per Susi, 'she does not have legal responsibility to make decision for pt and she is just a friend who is helping out'. SESAR informed her even if pt does not have assigned DPOA, family members can help in assisting pt get to next level of care instead of just assuming SW can find placement without their involvement. Susi reports, 'pt's mother need to make decision for him and stay with him if she thinks pt can return to [facility]'. SW discussed that pt needs more care than what [facility] can provide as he is requiring max assist of two and needs help with feeding. Susi discussed it might be a better option for pt to go a different facility [facility] but would like to to speak with pt's mother first. She also reported she was at work and won't be able to come to [facility] until past 1730. SW informed pt has dc order and they will either need to come to [facility] pt or call RN after 1630 if they believe they are not able to provide enough support for pt.
[2019-02-10] MEDS: POLYETHYLENE GLYCOL 3350 17 GM PACKET. PO SCH ×2 (08:46→08:57)
[2019-02-10] MEDS: LACTOBACILLUS RHAMNOSUS GG 1 CAPSULE. PO SCH (08:47)
[2019-02-10] MEDS: amLODIPine BESYLATE 5 MG TABLET PO SCH (08:47)
[2019-02-10] MEDS: ASPIRIN ENTERIC COATED 81 MG TABLET.DR. PO SCH (08:47)
[2019-02-10] MEDS: TAMSULOSIN 0.4 MG CAP.ER.24H. PO SCH (08:48)
[2019-02-10] MEDS: CALCIUM CARB/VIT D3 500/200 TABLET. PO SCH ×2 (08:48→17:08)
[2019-02-10] MEDS: FLECAINIDE ACETATE 50 MG TABLET. PO SCH (08:48)
[2019-02-10] MEDS: METOPROLOL TART IMMED RELEASE 50 MG TABLET. PO SCH (08:48)
[2019-02-10] MEDS: LISINOPRIL 20 MG TABLET PO SCH (08:49)
[2019-02-10] MEDS: PANTOPRAZOLE 40 MG TABLET.DR. PO SCH (08:49)
[2019-02-10] MEDS: levETIRAcetam 500 MG TABLET PO SCH (08:49)
[2019-02-10] MEDS: DIVALPROEX DELAYED RELEASE 500 MG TABLET.DR. PO SCH (08:49)
[2019-02-10] MEDS: FUROSEMIDE 40 MG TABLET. PO SCH (08:49)
--- NOTE | 2019-02-10 08:49 | NUR ---
SESAR following pt. SESAR phoned and faxed referral to [facility] and [facility]. Pt acceptance and admission pending. Will continue to follow.
[2019-02-10] MEDS: GABAPENTIN 300 MG CAPSULE. PO SCH ×2 (08:50→14:17)
[2019-02-10] MEDS: risperiDONE 0.25 MG TABLET. PO SCH (08:50)
[2019-02-10] MEDS: FLUTICASONE 50MCG/NASAL SPRAY 16GM BOTTLE. NS SCH (08:58)
[2019-02-10] MEDS ORDERED: cloNIDine TTS-3 1 PATCH PATCH.TDWK TD SCH (09:00)
--- NOTE | 2019-02-10 10:15 | NUR ---
PATIENT ALERT AND VERBALLY RESPONSIVE BUT REMAINS CONFUSED WITH EXPRESSIVE APHASIA, ASSISTED UP TO CHAIR AT THE BEDSIDE WITH ASSIST OF 2, (PHYSICAL THERAPIST AND DAY HABILITATION SUPERVISOR), PERSONAL ALARM IN CHAIR, WILL MONITOR.
[2019-02-10 11:00] VITALS: BP 119/88
--- NOTE | 2019-02-10 11:58 | PDOC ---
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, expressive asphasia Labs Lab Laboratory Tests Test 02/10/19 05:00 White Blood Count 3.1 x10^3/uL (4.0-11.0) Red Blood Count 3.74 x10^6/uL (4.30-5.70) Hemoglobin 11.9 g/dL (13.0-17.5) Hematocrit 36.1 % (39.0-53.0) Mean Corpuscular Volume 96 fL (79-100) Mean Corpuscular Hemoglobin 32 pg (25-35) Mean Corpuscular Hemoglobin Concent 33 g/dL (31-37) Red Cell Distribution Width 14.7 % (11.5-14.5) Platelet Count 364 x10^3/uL (140-400) Neutrophils (%) (Auto) 57 % (31-73) Lymphocytes (%) (Auto) 31 % (24-48) Monocytes (%) (Auto) 10 % (0-9) Eosinophils (%) (Auto) 2 % (0-3) Basophils (%) (Auto) 0 % (0-3) Neutrophils # (Auto) 1.8 x10^3uL (1.8-7.7) Lymphocytes # (Auto) 1.0 x10^3/uL (1.0-4.8) Monocytes # (Auto) 0.3 x10^3/uL (0.0-1.1) Eosinophils # (Auto) 0.1 x10^3/uL (0.0-0.7) Basophils # (Auto) 0.0 x10^3/uL (0.0-0.2) Sodium Level 146 mmol/L (136-145) Potassium Level 4.0 mmol/L (3.5-5.1) Chloride Level 105 mmol/L (98-107) Carbon Dioxide Level 30 mmol/L (21-32) Anion Gap 11 (6-14) Blood Urea Nitrogen 15 mg/dL (8-26) Creatinine 1.3 mg/dL (0.7-1.3) Estimated GFR (Cockcroft-Gault) 68.4 Glucose Level 80 mg/dL (70-99) Calcium Level 9.2 mg/dL (8.5-10.1) Micro BLD CULT RESULT 1 Preliminary Gram negative rods URINE CULTURE RES 1 Final Escherichia coli MICS are expressed in micrograms per mL Antibiotic RSLT#1 Amoxicillin/Clavulanic Acid S =8 Ampicillin R>=32 Cefepime S<=0.12 Ceftriaxone S<=0.25 Cefuroxime S =4 Ciprofloxacin S<=0.25 Ertapenem S<=0.12 Gentamicin S<=1 Imipenem S<=0.25 Levofloxacin S<=0.12 Meropenem S<=0.25 Nitrofurantoin S<=16 Piperacillin/Tazobactam S<=4 Tetracycline S<=1 Tobramycin S<=1 Trimethoprim/Sulfa S<=20 Objective Assessment E. coli bacteremia with sepsis (POA) 7/3 E. coli UTI (POA) 7/3 Leukopenia Encephalopathy MS HTN Plan Plan of Care Continue Rocephin for now Probiotics D/w nursing Attending Co-Sign Attending Co-Sign The patient was seen and interviewed as well as examined at the bedside. The chart was reviewed. The case was discussed. Agree with the plan of care. LIS ROSA APRN Feb 10, 2019 11:58 KALYANI AGUILAR MD Feb 10, 2019 16:02
--- NOTE | 2019-02-10 13:27 | NUR ---
SESAR following pt. Pt has been accepted at [facility] and [facility] declined. SESAR spoke with Pt's S.O., Susi who reported she wants pt's mother to make the ultimate decision. SESAR spoke with Pt's mother, Audrey who reported she does not want pt to to [facility]. SESAR informed pt's mother, Unless family would like to consider going to [facility], they will need to come and pick pt or he will have to return back to [facility]. Pt's mother now agreeable with [facility] after long conversation. Both Susi and Pt's mother verbalized they are not able to provide 24/7 care for pt. SESAR then received a phone call from Susi who requested for a screening at [facility]. SESAR discussed pt was declined at on previous stay (SESAR faxed referral again today) and Relayed the conversation with pt's mother regarding [facility]. SESAR phoned and faxed referral/order to [facility] and requested Cynthia to submit for approval. Discussed with RN. Will continue to follow. Addendum: 02/10/19 at 1626 by ZELDA KABA [facility] declined to take pt.
[2019-02-10 15:00] VITALS: BP 119/85
--- NOTE | 2019-02-10 16:24 | NUR ---
SESAR following pt. Insurance has approved SNU at [facility]. Pt will transport via facility arranged stretcher transport, between [id number]. SESAR left a voice mail to pt's mother, Audrey and Pt's S.O., Susi notified. RN notified and Packet on chart. Addendum: 02/10/19 at 1629 by ZELDA KABA Physician notified for orders.
--- NOTE | 2019-02-10 17:15 | NUR ---
REPORT CALLED TO [address] AT [facility], QUESTIONS AND CONCERNS ANSWERED, DISCHARGE PAPERWORK GIVEN TO [employer]ICS(2), ALL PERSONAL BELONGINGS GATHERED AND PLACED IN BAGS FOR DISCHARGE.
--- NOTE | 2019-02-10 17:30 | NUR ---
PATIENT LEAVES THE UNIT PER STRETCHER, EMOTIONAL SUPPORT GIVEN, CALL PLACED TO PATIENTS' MOTHER PER THIS NET TECHNICAL ARCHITECT TO INFORM HER THAT PATIENT HAS BEEN TRANSFERRED BACK TO [facility], MESSAGE LEFT ON ANSWERING MACHINE.
== END 2019-02-10 17:30 | DRG 871 ==
LOC: ER 11:38 → 6 SOUTH 14:15 → 5 SOUTH 02-06 15:29
PROVIDERS: ADMIT Internal Medicine; ATTEND Internal Medicine
DX: A41.50 Gram-negative sepsis, unspecified (principal); G93.41 Metabolic encephalopathy; J18.9 Pneumonia, unspecified organism; N39.0 Urinary tract infection, site not specified; R47.01 Aphasia; A41.51 Sepsis due to Escherichia coli [E. coli]; I10 Essential (primary) hypertension; G35 Multiple sclerosis; B96.20 Unspecified Escherichia coli [E. coli] as the cause of diseases classified elsewhere; Z96.641 Presence of right artificial hip joint; D72.819 Decreased white blood cell count, unspecified; F01.50 Vascular dementia, unspecified severity, without behavioral disturbance, psychotic disturbance, mood disturbance, and anxiety; Z82.49 Family history of ischemic heart disease and other diseases of the circulatory system; Z86.73 Personal history of transient ischemic attack (TIA), and cerebral infarction without residual deficits
CPT/HCPCS: 36415; 70450; 71045; 80048; 80053; 80164; 80184; 81001; 82140; 83605; 83880; 84484; 85025; 87040; 87077; 87086; 87186; 87205; 93005; 96361; 96365; 96375; J0696; J1630; J2543; J3370; J7030; J7040; J7050; 97530; 99285-25

== ENCOUNTER 2019-02-21 22:20 | Emergency (ER) | payer OTHER ==
[~2019-02-21] VITALS: Ht 179.1 cm; Wt 72.1 kg
[~2019-02-21 22:20] MED LIST changes: +CIPR250T30 PO; +LACT1CAP19 PO
[2019-02-21] MEDS ORDERED: IV NORMAL SALINE 500ML BAG 500 ML IV ONE (23:00)
[2019-02-21] MEDS ORDERED: cefTRIAXone IV Push 1 GM VIAL. IVP ONE (23:00)
[2019-02-21] MEDS ORDERED: IV NORMAL SALINE 1000ML BAG 1,000 ML IV ONE (23:00)
[2019-02-21 23:04] LABS: BASO % 0 % (0-3); EOS % 1 % (0-3); HEMATOCRIT 30.1 % (39.0-53.0); HEMOGLOBIN 10.1 g/dL (13.0-17.5); LYMPH # 0.4 x10^3/uL (1.0-4.8); LYMPH % 9 % (24-48); MEAN CORPUSCULAR HEMOGLOBIN 32 pg (25-35); MEAN CORPUSCULAR HGB CONC 34 g/dL (31-37); MEAN CORPUSCULAR VOLUME 96 fL (79-100); MONO # 0.4 x10^3/uL (0.0-1.1); MONO % 8 % (0-9); NEUT # 4.1 x10^3/uL (1.8-7.7); NEUT % 82 % (31-73); PLATELET COUNT 245 x10^3/uL (140-400); RED BLOOD COUNT 3.15 x10^6/uL (4.30-5.70); RED CELL DISTRIBUTION WIDTH 14.7 % (11.5-14.5)
--- NOTE | 2019-02-21 23:15 | RAD ---
Examination: PORTABLE CHEST 1V History: Fever Comparison/Correlation: 02/04/2019 Portable Chest X-ray Exam Findings: Portable upright frontal view chest was obtained. Heart size and pulmonary vasculature are normal. No infiltrate or pleural effusion. Retrocardiac opacity again seen which may represent hiatal hernia is similar to prior exam. Bony structures are unremarkable. Impression: No active disease. Electronically signed by: Denzel Gomez MD (02/21/2019 11:12 PM) [id number]
[2019-02-21 23:24] LABS: CALCIUM 8.9 mg/dL (8.5-10.1); CREATININE 1.1 mg/dL (0.7-1.3); GFR 82.9; POTASSIUM 3.4 mmol/L (3.5-5.1)
[2019-02-21 23:31] LABS: ALBUMIN 2.7 g/dL (3.4-5.0); ALBUMIN/GLOBULIN RATIO 0.7 (1.0-1.7); TOTAL BILIRUBIN 0.2 mg/dL (0.2-1.0); TOTAL PROTEIN 6.7 g/dL (6.4-8.2)
[2019-02-22 00:02] LABS: BILIRUBIN,URINE NEGATIVE (NEG); CLARITY,URINE CLEAR; COLOR,URINE YELLOW; NITRITE,URINE NEGATIVE (NEG); PROTEIN,URINE NEGATIVE (NEG-TRACE); UROBILINOGEN,URINE 0.2 mg/dL (0.2 mg/dL)
[2019-02-22 00:11] LABS: BACTERIA,URINE 0 /HPF (0-FEW); RBC,URINE OCC /HPF (0-2); SQUAMOUS EPITHELIAL CELL,UR OCC /LPF; WBC,URINE OCC /HPF (0-4)
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
[2019-02-22 01:29] VITALS: BP 119/85
--- NOTE | 2019-02-22 18:07 | EKG ---
[facility] [address] [place] [address] Test Date: 2019-02-21 Test Time: 22:37:33 Pat Name: MAC VAZ Department: Room: Gender: M Validation Manager: : 1960 Requested By: BAO RAYGOZA Order Number: [id number] Reading MD: Measurements Intervals [place] Rate: 65 P: 20 UT: 150 QRS: -13 QRSD: 108 T: -3 QT: 432 QTc: 450 Interpretive Statements SINUS RHYTHM LEFTWARD AXIS T ABNORMALITY IN ANTERIOR LEADS ABNORMAL ECG RI6.01 No previous ECG available for comparison
== END 2019-02-22 01:47 | disposition home or self-care (01) ==
LOC: ER 22:20
DX: R45.1 Restlessness and agitation (principal); R41.82 Altered mental status, unspecified; I10 Essential (primary) hypertension
CPT/HCPCS: 36415; 71045; 80053; 81001; 83605; 83880; 84484; 85025; 85610; 87040; 93005; 96361; 96374; 96375; 99285; J0696; J2060; J7030; J7040